=== PATIENT | female | born 1985 | race Caucasian/White ===

== ENCOUNTER 2016-07-08 10:15 | Emergency (ER) | payer BC ==
[~2016-07-08] VITALS: Ht 172.7 cm; Wt 131.5 kg
[2016-07-08 10:18] VITALS: BP 131/83
--- NOTE | 2016-07-08 11:57 | PHYS DOC ---
Past Medical History Past Medical History: Anxiety, DVT Additional Past Medical Histor: morbid obesity Past Surgical History: , Tubal ligation Additional Information: 7-8 cigarettes daily Alcohol Use: Rarely Drug Use: None Adult General Chief Complaint Chief Complaint: ALLERGIC REACTION HPI HPI Patient is a 30 year old female who presents with left upper lip and cheek swelling starting when she woke up this morning. She denies any difficulty breathing, difficulty swallowing, or swelling of the tongue. There is no rash noted. She used a new face washed last night but denies any other changes in household products, and new medications, or new foods. She has not taken any Benadryl today. Her PCP is Dr. Richard Youngblood. Review of Systems Review of Systems Constitutional: Denies fever or chills. [] Eyes: Denies change in visual acuity, redness, or eye pain. [] HENT: Denies ear pain, nasal congestion or sore throat. Denies dysphagia or tongue swelling. Reports left upper lip and cheek swelling. Respiratory: Denies cough or shortness of breath. [] Musculoskeletal: Denies back pain or joint pain. [] Integument: Denies rash or skin lesions. [] Neurologic: Denies headache, focal weakness or sensory changes. [] All systems reviewed and negative unless otherwise stated in the HPI. Allergies Allergies Allergies Coded Allergies Type Severity Reaction Last Updated Verified blueberry Allergy Severe Anaphylaxis 09/06/14 Yes latex Allergy Severe Hives 09/06/14 Yes codeine Adverse Reaction Intermediate "stomach ache" 09/06/14 Yes Physical Exam Physical Exam Constitutional: Well developed, well nourished, no acute distress, non-toxic appearance. [] HENT: Normocephalic, atraumatic, bilateral external ears normal, oropharynx moist, no oral exudates, nose normal. There is moderate edema of the left upper lip and cheek without swelling of the tongue or airway compromise. Eyes: PERRLA, EOMI, conjunctiva normal, no discharge. [] Neck: Normal range of motion, no tenderness, supple, no stridor. [] Cardiovascular: Heart rate regular rhythm, no murmur [] Lungs & Thorax: Bilateral breath sounds clear to auscultation without wheezes, rales, or rhonchi. No respiratory distress. Skin: Warm, dry, no erythema, no rash. [] Neurologic: Alert and oriented X 3, normal motor function, normal sensory function, no focal deficits noted. [] Psychologic: Affect normal, judgement normal, mood normal. [] Current Patient Data Vital Signs Vital Signs Date Time Temp Pulse Resp B/P Pulse Ox O2 Delivery O2 Flow Rate FiO2 07/08/16 10:18 98.0 88 16 131/83 99 Room Air 98.0 EKG EKG [] Radiology/Procedures Radiology/Procedures [] Course & Med Decision Making Course & Med Decision Making Pertinent Labs and Imaging studies reviewed. (See chart for details) Patient presents with left upper lip swelling after sneezing any face wash. She is given Decadron, Benadryl, and Pepcid in the emergency department. She is instructed to discontinue use of the face wash and note the active ingredient to avoid that as well. She may continue Benadryl and Pepcid at home. Return precautions were discussed. She verbalizes understanding and agrees with plan. Dragon Disclaimer Dragon Disclaimer This electronic medical record was generated, in whole or in part, using a voice recognition dictation system. Departure Departure Impression: Primary Impression: Allergic reaction Disposition: HOME, SELF-CARE Condition: STABLE Referrals: RICHARD YOUNGBLOOD MD (PCP) Patient Instructions: Angioedema, [id number] Additional Instructions: You were seen for swelling of your lip after using a new facial wash. Please do not use the facial wash again. Please check the active ingredients on the facial wash and avoid using other products containing the active ingredient. You were given a shot of steroids in the emergency department. You may also take Benadryl and Pepcid at home to help with any itching or swelling. Use according to package instructions. Return immediately to the emergency department if you have increased swelling, swelling of the tongue, or difficulty breathing. Problem Qualifiers Primary Impression: Allergic reaction Encounter type: initial encounter Qualified Code: T78.40XA - Allergy, unspecified, initial encounter GABRIELA RUIZ Jul 08, 2016 11:57
[2016-07-08] MEDS ORDERED: DEXAMETHASONE SOD PHOS 20 MG/5 ML VIAL. IM ONE (12:00)
[2016-07-08] MEDS ORDERED: FAMOTIDINE 20 MG TABLET. PO ONE (12:00)
[2016-07-08] MEDS ORDERED: DIPHENHYDRAMINE HCL 25 MG CAPSULE PO ONE (12:00)
== END 2016-07-08 12:18 | disposition home or self-care (01) ==
LOC: ER 10:15
DX: T78.40XA Allergy, unspecified, initial encounter (principal); E66.01 Morbid (severe) obesity due to excess calories; Z68.41 Body mass index [BMI] 40.0-44.9, adult; F17.210 Nicotine dependence, cigarettes, uncomplicated; Z91.040 Latex allergy status; Z88.5 Allergy status to narcotic agent; Z91.018 Allergy to other foods
CPT/HCPCS: 96372; 99283; J1100; Q0163

== ENCOUNTER 2016-07-22 22:44 | Emergency (ER) | payer BC ==
[~2016-07-22] VITALS: Ht 170.2 cm; Wt 131.5 kg
[2016-07-22 23:05] VITALS: BP 114/70
--- NOTE | 2016-07-22 23:07 | PHYS DOC ---
Past Medical History Past Medical History: Anxiety, DVT Additional Past Medical Histor: morbid obesity Past Surgical History: , Tubal ligation Alcohol Use: Rarely Drug Use: None Adult General Chief Complaint Chief Complaint: ALLERGIC REACTION HPI HPI 30-year-old female presents with a two-hour history of some upper lip swelling facial itching and chest itching. She states she also had a faint rash. She was seen in the emergency department 2 weeks ago for the same and they thought it was related to a face washing been using so she stopped using this. She denies any new medicines soaps lotions detergents etc. She's not had any trouble breathing or swallowing. She does not feels if her tongue is swollen. [] Review of Systems Review of Systems Constitutional: Denies fever or chills [] Eyes: Denies change in visual acuity, redness, or eye pain [] HENT: Denies nasal congestion or sore throat [] Respiratory: Denies cough or shortness of breath [] Cardiovascular: No additional information not addressed in HPI [] GI: Denies abdominal pain, nausea, vomiting, bloody stools or diarrhea [] : Denies dysuria or hematuria [] Musculoskeletal: Denies back pain or joint pain [] Integument: Per history of present illness [] Neurologic: Denies headache, focal weakness or sensory changes [] Endocrine: Denies polyuria or polydipsia [] Current Medications Current Medications Current Medications Medications (Trade) Dose Ordered Sig/Blayne Start Time Stop Time Status Last Admin Dose Admin Diphenhydramine HCl (Benadryl) 25 mg 1X ONCE 07/22/16 23:15 07/22/16 23:16 DC 07/22/16 23:23 25 MG Famotidine 40 mg 40 mg 1X ONCE 07/22/16 23:15 07/22/16 23:16 DC 07/22/16 23:24 40 MG Methylprednisolone Sodium Succinate (Solu-Medrol 125mg Vial) 125 mg 1X ONCE 07/22/16 23:15 07/22/16 23:16 DC 07/22/16 23:23 125 MG Sodium Chloride (Iv Sodium Chloride 0.9% 1000ml Bag) 1,000 ml @ 1,000 mls/hr 1X ONCE 07/22/16 23:15 07/23/16 00:14 DC 07/22/16 23:15 1,000 MLS/HR Allergies Allergies Allergies Coded Allergies Type Severity Reaction Last Updated Verified blueberry Allergy Severe Anaphylaxis 09/06/14 Yes latex Allergy Severe Hives 09/06/14 Yes codeine Adverse Reaction Intermediate "stomach ache" 09/06/14 Yes Physical Exam Physical Exam Constitutional: Well developed, well nourished, no acute distress, non-toxic appearance. [] HENT: Normocephalic, atraumatic, bilateral external ears normal, oropharynx moist, no oral exudates, nose normal. [] Eyes: PERRLA, EOMI, conjunctiva normal, no discharge. [] Neck: Normal range of motion, no tenderness, supple, no stridor. [] Cardiovascular:Heart rate regular rhythm, no murmur [] Lungs & Thorax: Bilateral breath sounds clear to auscultation [] Abdomen: Bowel sounds normal, soft, no tenderness, no masses, no pulsatile masses. [] Skin: Mild swelling to her upper lip tongue uvula posterior pharynx are unremarkable no noticeable rash some periorbital swelling. [] Back: No tenderness, no CVA tenderness. [] Extremities: No tenderness, no cyanosis, no clubbing, ROM intact, no edema. [] Neurologic: Alert and oriented X 3, normal motor function, normal sensory function, no focal deficits noted. [] Psychologic: Affect normal, judgement normal, mood normal. [] Current Patient Data Vital Signs Vital Signs Date Time Temp Pulse Resp B/P Pulse Ox O2 Delivery O2 Flow Rate FiO2 07/22/16 23:05 98.5 91 20 114/70 99 Room Air 98.5 Lab Values Laboratory Tests Test 07/22/16 22:03 POC Urine HCG, Qualitative Hcg negative (Negative) EKG EKG [] Radiology/Procedures Radiology/Procedures [] Course & Med Decision Making Course & Med Decision Making Pertinent Labs and Imaging studies reviewed. (See chart for details) [] Patient feels significantly improved on the ER after treatment. Patient reports swelling in her lip is completely resolved and the itching is resolved as well too. Patient be discharged home with prednisone as well as Benadryl. Patient was instructed to keep a log of everything that she is coming in contact with within the last 24 hours that she can cross-reference that next time she does have an allergic reaction. Patient reports that she had similar symptoms approximately 2 weeks ago and she thought was secondary to a soap however she reports this time she presented with the same symptoms again with no usage of that soap that she thought she was allergic to it. Patient reports that she did not keep a diary at that time. Patient currently is hemodynamically stable for discharged home. Patient's lungs are clear. Patient has no stridor. Patient's oropharynx is clear without any evidence of edema or swelling. Patient's lip does not appear to have any swelling at this time. Patient's skin does not show any evidence of rash. HEENT clinically she does not show any signs or symptoms consistent with anaphylaxis or airway involvement. Dragon Disclaimer Dragon Disclaimer This electronic medical record was generated, in whole or in part, using a voice recognition dictation system. Departure Departure Impression: Primary Impression: Allergic reaction Disposition: 01 HOME, SELF-CARE Condition: IMPROVED Referrals: JACKELIN YOUNGBLOOD MD (PCP) Patient Instructions: Allergy Skin Testing, Hives Scripts Prednisone 50 Mg Tablet1 Tab PO DAILY #5 TAB Prov:BRETT STEPHEN MD 07/23/16 Diphenhydramine Hcl (Benadryl)25 Mg Capsule2 Cap PO Q6HRS PRN ITCHING #14 CAP Ref 2 Prov:BRETT STEPHEN MD 07/23/16 Problem Qualifiers Primary Impression: Allergic reaction Encounter type: subsequent encounter Qualified Code: T78.40XD - Allergy, unspecified, subsequent encounter VELMA SIMMS DO Jul 22, 2016 23:07 BRETT STEPHEN MD Jul 23, 2016 00:57
[2016-07-22] MEDS ORDERED: methylPREDNISolone SOD SUCC PF 125 MG/2 ML VIAL. IV ONE (23:15)
[2016-07-22] MEDS ORDERED: IV NORMAL SALINE 1000ML BAG 1,000 ML IV ONE (23:15)
[2016-07-22] MEDS ORDERED: DIPHENHYDRAMINE 50 MG/ML VIAL. IVP ONE (23:15)
[2016-07-22] MEDS ORDERED: FAMOTIDINE 20 MG/2 ML VIAL IVP ONE (23:15)
[2016-07-23] MEDS ORDERED: DIPH25CA58 PO (00:57)
[2016-07-23] MEDS ORDERED: PRED50TA PO (00:57)
== END 2016-07-23 01:18 | disposition home or self-care (01) ==
LOC: ER 22:44
DX: T78.40XA Allergy, unspecified, initial encounter (principal); F41.9 Anxiety disorder, unspecified; E66.01 Morbid (severe) obesity due to excess calories; Z68.42 Body mass index [BMI] 45.0-49.9, adult; Z86.718 Personal history of other venous thrombosis and embolism
CPT/HCPCS: 84703; 96361; 96374; 96375; 99285; J1200; J2930; J7030; S0028; 81025

== ENCOUNTER 2016-08-12 03:31 | Emergency (ER) | payer BC ==
[~2016-08-12] VITALS: Ht 170.2 cm; Wt 131.5 kg
[~2016-08-12 03:31] MED LIST: DIPH25CA58 PO; PRED50TA PO
[2016-08-12 03:53] VITALS: BP 152/60
[2016-08-12] MEDS ORDERED: PENI500T PO (04:06)
[2016-08-12] MEDS ORDERED: HYDR-971 PO (04:06)
--- NOTE | 2016-08-12 04:07 | PHYS DOC ---
Past Medical History Past Medical History: Anxiety, DVT Additional Past Medical Histor: morbid obesity Past Surgical History: , Tubal ligation Alcohol Use: Rarely Drug Use: None Adult General Chief Complaint Chief Complaint: DENTAL PROBLEM HPI HPI Patient is a 30 year old female who presents with dental pain. Patient reports 2 day history of severe diffuse dental pain with jaw swelling. Denies fevers/chills, vomiting. Hasn't seen a dentist for years. Review of Systems Review of Systems Constitutional: Denies fever or chills HENT: Denies nasal congestion or sore throat Respiratory: Denies cough Cardiovascular: Denies chest pain GI: Denies abdominal pain, nausea, vomiting Integument: Denies rash Neurologic: Denies headache Current Medications Current Medications Current Medications Medications (Trade) Dose Ordered Sig/Blayne Start Time Stop Time Status Last Admin Dose Admin Acetaminophen/ Hydrocodone Bitart (Lortab 5/325) 2 tab 1X ONCE 08/12/16 04:30 08/12/16 04:30 DC 08/12/16 04:14 2 TAB Allergies Allergies Allergies Coded Allergies Type Severity Reaction Last Updated Verified blueberry Allergy Severe Anaphylaxis 09/06/14 Yes latex Allergy Severe Hives 09/06/14 Yes codeine Adverse Reaction Intermediate "stomach ache" 09/06/14 Yes Physical Exam Physical Exam Constitutional: obese, no acute distress, non-toxic appearance. HENT: Normocephalic, atraumatic, bilateral external ears normal, oropharynx moist, nose normal. poor dentition throughout with extensive dental caries, dental fractures, scattered gingival erythema without abscess, no trismus, bilateral jaw swelling - left mandibular & maxillary, right mandibular only. Eyes: conjunctiva normal, no discharge. Cardiovascular: no edema. Lungs & Thorax: no respiratory distress. Abdomen: nondistended. Skin: Warm, dry, Extremities: No deformity Neurologic: Alert and oriented X 3 Current Patient Data Vital Signs Vital Signs Date Time Temp Pulse Resp B/P Pulse Ox O2 Delivery O2 Flow Rate FiO2 08/12/16 03:53 98.8 96 20 99 Room Air 98.8 EKG EKG [] Radiology/Procedures Radiology/Procedures [] Course & Med Decision Making Course & Med Decision Making Pertinent Labs and Imaging studies reviewed. (See chart for details) The patient presents with dental pain with significant jaw swelling. No obvious focal source of infection but numerous infected dental caries. Gave norco here (not driving), recommend ibuprofen TID, gave norco for severe pain & penicillin for infection, apply ice packs for comfort. Provided with dental clinic list, follow up as soon as possible. Come back for difficulty breathing or swallowing, or any otherwise worsening condition. Discharged home in stable condition. [] Dragon Disclaimer Dragon Disclaimer This electronic medical record was generated, in whole or in part, using a voice recognition dictation system. Departure Departure Impression: Primary Impression: Dental infection Disposition: 01 HOME, SELF-CARE Condition: STABLE Referrals: JACKELIN YOUNGBLOOD MD (PCP) Patient Instructions: Dental Pain, [id number] Additional Instructions: You were seen in the emergency department today for dental infection. Please apply ice, take ibuprofen 600 mg (3 tablets) every 8 hours, use norco as needed for severe pain, take antibiotics as prescribed. Follow up as soon as possible with a dentist. Come back for difficulty breathing or swallowing, or any otherwise worsening condition. Scripts Penicillin V Potassium 500 Mg [id number] Mg PO QID 7 Days Ref 0 Prov:JIMMY BECK MD 08/12/16 Hydrocodone/Apap 5-325 ([place] 5-325 Tablet)1 Each Tablet1 Tab PO PRN Q6HRS PRN PAIN #10 TAB Prov:JIMMY BECK MD 08/12/16 JIMMY BECK MD August 12, 2016 04:06
[2016-08-12] MEDS ORDERED: HYDROCODONE/APAP 5/325MG TABLET. PO ONE (04:30)
== END 2016-08-12 04:19 | disposition home or self-care (01) ==
LOC: ER 03:31
DX: K04.7 Periapical abscess without sinus (principal); E66.01 Morbid (severe) obesity due to excess calories; F41.9 Anxiety disorder, unspecified; Z86.718 Personal history of other venous thrombosis and embolism; Z68.42 Body mass index [BMI] 45.0-49.9, adult; Z91.040 Latex allergy status; Z88.5 Allergy status to narcotic agent; Z91.018 Allergy to other foods
CPT/HCPCS: 99283

== ENCOUNTER 2016-10-07 19:31 | Emergency (ER) | payer BC ==
[~2016-10-07] VITALS: Ht 172.7 cm; Wt 131.5 kg
[~2016-10-07 19:31] MED LIST changes: +HYDR-971 PO; +PENI500T PO
--- NOTE | 2016-10-07 21:04 | RAD ---
EXAM: Bilateral lower extremity venous Doppler. HISTORY: Bilateral lower extremity pain/swelling. Prior DVT. COMPARISON: None. FINDINGS: Grayscale and Doppler analysis of the both lower extremity deep venous systems was performed with graded compression and augmentation. The common femoral, greater saphenous, superficial femoral, popliteal and calf veins were assessed. There is no evidence of deep venous thrombosis. IMPRESSION: 1. No evidence of deep venous thrombosis. Electronically signed by: Lebron Montanez MD (10/07/2016 9:01 PM)
[2016-10-07 22:00] VITALS: BP 129/72
[2016-10-07] MEDS ORDERED: IBUP200T77 PO (22:10)
--- NOTE | 2016-10-07 22:10 | PHYS DOC ---
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 Past Surgical History: , Tubal ligation Additional Past Surgical Histo: FACE SX Alcohol Use: None Drug Use: None Adult General Chief Complaint Chief Complaint: LOWER EXT PAIN HPI HPI 31-year-old female presenting to the emergency department with left leg pain. Pain is been present for one week. It is a sharp throbbing pain mostly in the calf. She denies recent trauma to the leg. She does have a history of DVT in the past. She reports that it was related to . She denies being and reports having a tubal ligation. The pain is moderate nonradiating intermittent. No alleviating or exacerbating factors present. Review of systems is negative for chest pain shortness of breath abdominal pain nausea vomiting. She denies any recent injuries or trauma. All other review of systems is negative unless otherwise noted in history of present illness. ED course: 31-year-old female presenting to the emergency department with left leg pain. Vital signs afebrile with normal heart rate. Pertinent physical exam findings showed tenderness along the calf and venous system. Normal range of motion of the ankle and knee. Nontender ankle and knee. No ecchymosis lacerations or abrasions to suggest recent trauma. Ultrasound of the left leg was performed which did not show any evidence of DVT. The patient was then discharged home with ibuprofen for pain control to follow up with her doctor. The patient was then discharged home in stable condition to follow up with their primary care physician over the next 2-3 days. They were to return if their symptoms worsened or if they were concerned for any reason. [id number] discharge instructions and return precautions were given. Patient's questions were answered to their satisfaction. Patient is comfortable plan. Review of Systems Review of Systems SEE ABOVE. Allergies Allergies Allergies Coded Allergies Type Severity Reaction Last Updated Verified blueberry Allergy Severe Anaphylaxis 09/06/14 Yes latex Allergy Severe Hives 09/06/14 Yes codeine Adverse Reaction Intermediate "stomach ache" 09/06/14 Yes Physical Exam Physical Exam Constitutional: Well developed, well nourished, no acute distress, non-toxic appearance. [] HENT: Normocephalic, atraumatic, bilateral external ears normal, oropharynx moist, no oral exudates, nose normal. [] Eyes: PERRLA, EOMI, conjunctiva normal, no discharge. [] Neck: Normal range of motion, no tenderness, supple, no stridor. [] Cardiovascular:Heart rate regular rhythm, no murmur [] Lungs & Thorax: Bilateral breath sounds clear to auscultation [] Abdomen: Bowel sounds normal, soft, no tenderness, no masses, no pulsatile masses. [] Skin: Warm, dry, no erythema, no rash. [] Back: No tenderness, no CVA tenderness. [] Extremities: see above Neurologic: Alert and oriented X 3, normal motor function, normal sensory function, no focal deficits noted. [] Psychologic: Affect normal, judgement normal, mood normal. [] Current Patient Data Vital Signs Vital Signs Date Time Temp Pulse Resp B/P (MAP) Pulse Ox O2 Delivery O2 Flow Rate FiO2 10/07/16 21:03 98.2 86 16 119/67 (84) 97 Room Air 98.2 Lab Values Laboratory Tests Test 10/07/16 20:46 POC Urine HCG, Qualitative Hcg negative (Negative) EKG EKG [] Radiology/Procedures Radiology/Procedures [] Course & Med Decision Making Course & Med Decision Making Pertinent Labs and Imaging studies reviewed. (See chart for details) [] Dragon Disclaimer Dragon Disclaimer This electronic medical record was generated, in whole or in part, using a voice recognition dictation system. Departure Departure Impression: Primary Impression: Left leg pain Disposition: 01 HOME, SELF-CARE Condition: STABLE Referrals: JACKELIN YOUNGBLOOD MD (PCP) Patient Instructions: Leg Cramps Additional Instructions: Thank you for allowing us to participate in your care today. Followup with your primary care physician in 3 days if your symptoms do not improve. Call your Primary Doctor tomorrow and inform them of your visit today. If you do not have a primary care provider you can ask for a list of our primary care providers. Return to the emergency department you have any new or concerning findings. This should be evaluated by the primary care physician and any necessary consulting services for continued management within a few days after discharge. Return to emergency room if you have any new or concerning symptoms including but not limited to fever, chills, nausea, vomiting, intractable pain, any new rashes, chest pain, shortness of air, uncontrolled bleeding, difficulty breathing, and/or vision loss. Scripts Ibuprofen (IBUPROFEN) 200 Mg Tablet 200 MG PO PRN Q6HRS Y for INFLAMMATION, #30 TAB Prov: EITAN BRIGGS MD 10/07/16 EITAN BRIGGS MD Oct 07, 2016 22:10
== END 2016-10-07 22:17 | disposition home or self-care (01) ==
LOC: ER 19:37
DX: M79.605 Pain in left leg (principal); Z86.718 Personal history of other venous thrombosis and embolism; E66.01 Morbid (severe) obesity due to excess calories; Z68.41 Body mass index [BMI] 40.0-44.9, adult; Z98.890 Other specified postprocedural states; Z98.51 Tubal ligation status; Z86.2 Personal history of diseases of the blood and blood-forming organs and certain disorders involving the immune mechanism; Z88.5 Allergy status to narcotic agent; Z88.8 Allergy status to other drugs, medicaments and biological substances; Z91.040 Latex allergy status
CPT/HCPCS: 81025; 93971; 99284-25

== ENCOUNTER 2016-10-09 20:21 | Emergency (ER) | payer BC ==
[~2016-10-09] VITALS: Ht 170.2 cm; Wt 136.1 kg
[~2016-10-09 20:21] MED LIST changes: +IBUP200T77 PO
[2016-10-09] MEDS ORDERED: IV NORMAL SALINE 1000ML BAG 1,000 ML IV SCH (20:57)
[2016-10-09] MEDS ORDERED: EPINEPHrine 1 MG/ML VIAL IM ONE (21:00)
[2016-10-09] MEDS ORDERED: methylPREDNISolone SOD SUCC PF 125 MG/2 ML VIAL. IV ONE (21:00)
[2016-10-09] MEDS ORDERED: FAMOTIDINE 20 MG/2 ML VIAL IVP ONE (21:00)
[2016-10-09] MEDS ORDERED: diphenhydrAMINE 50 MG/ML VIAL IV ONE (21:00)
--- NOTE | 2016-10-09 22:43 | PHYS DOC ---
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 Past Surgical History: , Tubal ligation Additional Past Surgical Histo: FACE SX Alcohol Use: None Drug Use: None Adult General Chief Complaint Chief Complaint: ALLERGIC REACTION HPI HPI Patient is a 31 year old female who presents with allergic reaction. The patient states she took diclofenac & methocarbamol for back pain at about 1600, shortly thereafter had onset of lip swelling & tingling with sensation of difficulty catching her breath. She denies tongue swelling, throat tightness, vomiting, diarrhea, rash, urticaria. She states she had previously taken diclofenac on 1 occasion, has never taken methocarbamol. She also has prescription for norco which she has taken before without problems, & did not take any pills yet. She just saw her PCP Dr. Youngblood this afternoon for lower back pain & received all of these prescriptions. No other new foods, exposures to soaps/lotions/detergents. She denies previous history of similar reaction. She is allergic to blueberries. Review of Systems Review of Systems Constitutional: Denies fever or chills Eyes: Denies change in visual acuity HENT: Denies nasal congestion or sore throat, reports lip swelling. Respiratory: Denies cough or shortness of breath Cardiovascular: Denies chest pain GI: Denies abdominal pain, nausea, vomiting, or diarrhea Musculoskeletal: Denies back pain or joint pain Integument: Denies rash or skin lesions Neurologic: Denies headache Current Medications Current Medications Current Medications Medications (Trade) Dose Ordered Sig/Blayne Start Time Stop Time Status Last Admin Dose Admin Diphenhydramine HCl (Benadryl) 25 mg 1X ONCE 10/09/16 21:00 10/09/16 21:03 DC 10/09/16 21:15 25 MG Epinephrine HCl (Adrenalin) 0.3 mg 1X ONCE 10/09/16 21:00 10/09/16 21:03 DC 10/09/16 21:02 0.3 MG Famotidine (Pepcid) 20 mg 1X ONCE 10/09/16 21:00 10/09/16 21:03 DC 10/09/16 21:15 20 MG Methylprednisolone Sodium Succinate (SOLU-Medrol 125MG VIAL) 125 mg 1X ONCE 10/09/16 21:00 10/09/16 21:03 DC 10/09/16 21:14 125 MG Sodium Chloride 1,000 ml @ 1,000 mls/hr Q1H 10/09/16 20:57 10/09/16 21:56 DC 10/09/16 21:12 1,000 MLS/HR Allergies Allergies Allergies Coded Allergies Type Severity Reaction Last Updated Verified blueberry Allergy Severe Anaphylaxis 09/06/14 Yes latex Allergy Severe Hives 09/06/14 Yes codeine Adverse Reaction Intermediate "stomach ache" 09/06/14 Yes Physical Exam Physical Exam Constitutional: obese, no acute distress, non-toxic appearance. HENT: Normocephalic, atraumatic, bilateral external ears normal, oropharynx moist, nose normal. upper & lower lip swelling, no tongue swelling, airway patent. Eyes: conjunctiva normal, no discharge. Neck: supple, no stridor. Cardiovascular: RRR, no murmurs, no edema. Lungs & Thorax: LCTAB, no wheezing, no respiratory distress. Abdomen: soft, nontender, nondistended. Skin: Warm, dry, no erythema, no rash. no urticaria Back: No tenderness. Extremities: No tenderness, no edema. Neurologic: Alert and oriented X 3 Current Patient Data Vital Signs Vital Signs Date Time Temp Pulse Resp B/P (MAP) Pulse Ox O2 Delivery O2 Flow Rate FiO2 10/09/16 22:50 74 18 97 Room Air 10/09/16 22:45 95/55 (68) 10/09/16 20:40 98.1 98.1 EKG EKG [] Radiology/Procedures Radiology/Procedures [] Course & Med Decision Making Course & Med Decision Making Pertinent Labs and Imaging studies reviewed. (See chart for details) The patient presents with allergic reaction to medication, not clear which of the 2 medications caused symptoms as they were taken together. She has lip swelling, administered epi IM as well as IV fluids, Solu-Medrol, Pepcid, Benadryl. She was observed for over 2 hours. Symptoms improved and did not recur. No progression of airway symptoms. She was calm trouble with discharge home. I recommended that she discontinue both medications for now. Okay to keep taking [place] and ibuprofen. Gave prescription for Flexeril that she can fill as needed if symptoms not controlled with [place] and ibuprofen. Also provided prescription for EpiPen to be used if symptoms recur. Gave prescriptions for prednisone and Pepcid, encouraged continuation of Benadryl every 6 hours for the next 4 days. Follow-up with Dr. Youngblood in primary care clinic in 2-3 days. Return to the emergency department for face/tongue/lip swelling, severe shortness of breath, any otherwise worsening condition. Discharged home in stable and improved condition. Critical care time: 35 minutes [] Dragon Disclaimer Dragon Disclaimer This electronic medical record was generated, in whole or in part, using a voice recognition dictation system. Departure Departure Impression: Primary Impression: Allergic reaction Disposition: 01 HOME, SELF-CARE Condition: IMPROVED Referrals: JACKELIN YOUNGBLOOD MD (PCP) Patient Instructions: Drug Allergy, [id number] Additional Instructions: You were seen in the emergency department today for allergic reaction, likely caused by one of the new medications. Please discontinue use until discussing with your doctor. Take prednisone for the next 4 days, continue Benadryl every 6 hours over the next 4 days, take Pepcid daily. If needing additional medication for back pain and spasm, fill prescription for Flexeril. If you would like to have an EpiPen on hand, you may fill the prescription for that as well as use if you have face/tongue/lip swelling, shortness of breath, and of administering please be seen by Dr. Follow-up with Dr. Youngblood in 2-3 days. Come back for face/tongue/lip swelling, severe shortness of breath, any otherwise worsening condition. Scripts Epinephrine (EPIPEN 2-ANNIE) 0.3 Mg/0.3 Ml Auto.injct 0.3 MG IJ 1X Y for ANAPHYLAXIS, #2 SYR Prov: JIMMY BECK MD 10/09/16 Famotidine (PEPCID) 20 Mg Tablet 20 MG PO HS, #4 TAB Prov: JIMMY BECK MD 10/09/16 Cyclobenzaprine Hcl (CYCLOBENZAPRINE HCL) 5 Mg Tablet 1 TAB PO TID Y for MUSCLE SPASMS, #10 TAB Prov: JIMMY BECK MD 10/09/16 Prednisone (PREDNISONE) 50 Mg Tablet 1 TAB PO DAILY, #4 TAB Prov: JIMMY BECK MD 10/09/16 JIMMY BECK MD Oct 09, 2016 22:43
[2016-10-09 22:45] VITALS: BP 95/55
[2016-10-09] MEDS ORDERED: CYCL5TAB PO (22:50)
[2016-10-09] MEDS ORDERED: FAMO-63 PO (22:50)
[2016-10-09] MEDS ORDERED: EPIPEN 2-P0.3 MG/0.3 IJ (22:50)
[2016-10-09] MEDS ORDERED: PRED50TA PO (22:50)
== END 2016-10-09 23:05 | disposition home or self-care (01) ==
LOC: ER 20:21
DX: T39.395A Adverse effect of other nonsteroidal anti-inflammatory drugs [NSAID], initial encounter (principal); T42.8X5A Adverse effect of antiparkinsonism drugs and other central muscle-tone depressants, initial encounter; R06.09 Other forms of dyspnea; R20.2 Paresthesia of skin; K14.8 Other diseases of tongue; Z98.890 Other specified postprocedural states; Z98.51 Tubal ligation status; Z86.718 Personal history of other venous thrombosis and embolism; F41.9 Anxiety disorder, unspecified; Z86.2 Personal history of diseases of the blood and blood-forming organs and certain disorders involving the immune mechanism; Z91.040 Latex allergy status; Z88.5 Allergy status to narcotic agent; Z91.018 Allergy to other foods; Y92.89 Other specified places as the place of occurrence of the external cause
CPT/HCPCS: 96361; 96372; 96374; 96375; 99291; J0171; J1200; J2930; J7030; S0028

== ENCOUNTER 2016-10-17 13:52 | Emergency (ER) | payer BC ==
[~2016-10-17] VITALS: Ht 170.2 cm; Wt 135.2 kg
[~2016-10-17 13:52] MED LIST changes: +CYCL5TAB PO; +EPIPEN 2-P0.3 MG/0.3 IJ; +FAMO-63 PO
[2016-10-17] MEDS ORDERED: diphenhydrAMINE 50 MG/ML VIAL ONE (14:20)
[2016-10-17] MEDS ORDERED: FAMOTIDINE 20 MG/2 ML VIAL ONE (14:20)
[2016-10-17] MEDS ORDERED: methylPREDNISolone SOD SUCC PF 125 MG/2 ML VIAL. ONE (14:20)
[2016-10-17] MEDS ORDERED: FAMOTIDINE 20 MG/2 ML VIAL IVP ONE (14:45)
[2016-10-17] MEDS ORDERED: diphenhydrAMINE 50 MG/ML VIAL IVP ONE (14:45)
[2016-10-17] MEDS ORDERED: methylPREDNISolone SOD SUCC PF 125 MG/2 ML VIAL. IV ONE (14:45)
--- NOTE | 2016-10-17 16:17 | PHYS DOC ---
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 Past Surgical History: , Tubal ligation Additional Past Surgical Histo: FACE SX Additional Information: 5-6 cigarettes daily Alcohol Use: Rarely Drug Use: None Adult General Chief Complaint Chief Complaint: ALLERGIC REACTION HPI HPI Patient is a 31 year old [f__sex] who presents with [] Review of Systems Review of Systems Constitutional: Denies fever or chills [] Eyes: Denies change in visual acuity, redness, or eye pain [] HENT: Denies nasal congestion or sore throat [] Respiratory: Denies cough or shortness of breath [] Cardiovascular: No additional information not addressed in HPI [] GI: Denies abdominal pain, nausea, vomiting, bloody stools or diarrhea [] : Denies dysuria or hematuria [] Musculoskeletal: Denies back pain or joint pain [] Integument: Denies rash or skin lesions [] Neurologic: Denies headache, focal weakness or sensory changes [] Endocrine: Denies polyuria or polydipsia [] Current Medications Current Medications Current Medications Medications (Trade) Dose Ordered Sig/Blayne Start Time Stop Time Status Last Admin Dose Admin Diphenhydramine HCl (Benadryl) 25 mg 1X ONCE 10/17/16 14:45 10/17/16 14:46 DC 10/17/16 14:35 25 MG Famotidine (Pepcid) 20 mg 1X ONCE 10/17/16 14:45 10/17/16 14:46 DC 10/17/16 14:40 20 MG Methylprednisolone Sodium Succinate (SOLU-Medrol 125MG VIAL) 125 mg 1X ONCE 10/17/16 14:45 10/17/16 14:46 DC 10/17/16 14:37 125 MG Allergies Allergies Allergies Coded Allergies Type Severity Reaction Last Updated Verified blueberry Allergy Severe Anaphylaxis 09/06/14 Yes ketorolac Allergy Severe angioedema, itching, hives 10/17/16 Yes latex Allergy Severe Hives 09/06/14 Yes codeine Adverse Reaction Intermediate "stomach ache" 09/06/14 Yes Physical Exam Physical Exam Constitutional: Well developed, well nourished, no acute distress, non-toxic appearance. [] HENT: Normocephalic, atraumatic, bilateral external ears normal, oropharynx moist, no oral exudates, nose normal. [] Eyes: PERRLA, EOMI, conjunctiva normal, no discharge. [] Neck: Normal range of motion, no tenderness, supple, no stridor. [] Cardiovascular:Heart rate regular rhythm, no murmur [] Lungs & Thorax: Bilateral breath sounds clear to auscultation [] Abdomen: Bowel sounds normal, soft, no tenderness, no masses, no pulsatile masses. [] Skin: Warm, dry, no erythema, no rash. [] Back: No tenderness, no CVA tenderness. [] Extremities: No tenderness, no cyanosis, no clubbing, ROM intact, no edema. [] Neurologic: Alert and oriented X 3, normal motor function, normal sensory function, no focal deficits noted. [] Psychologic: Affect normal, judgement normal, mood normal. [] Current Patient Data Vital Signs Vital Signs Date Time Temp Pulse Resp B/P (MAP) Pulse Ox O2 Delivery O2 Flow Rate FiO2 10/17/16 15:28 75 18 111/58 (75) 98 Room Air 10/17/16 14:02 98.9 98.9 EKG EKG [] Radiology/Procedures Radiology/Procedures [] Course & Med Decision Making Course & Med Decision Making Pertinent Labs and Imaging studies reviewed. (See chart for details) [] Dragon Disclaimer Dragon Disclaimer This electronic medical record was generated, in whole or in part, using a voice recognition dictation system. Departure Departure Impression: Primary Impression: Allergic reaction Disposition: HOME, SELF-CARE Condition: IMPROVED Referrals: JACKELIN YOUNGBLOOD MD (PCP) Patient Instructions: Drug Allergy Additional Instructions: It appears that you have had allergic reaction to Toradol. Be sure to make a note to your allergic to this medicine as after receiving it U developed signs of a systemic allergic reaction. Finished prednisone as prescribed once a day for 5 days starting tomorrow. Use Benadryl and Pepcid as needed for itching and hives. Return immediately for changes in her voice difficulty breathing or wheezing . Follow up with your doctor for repeat reevaluation and to arrange allergy testing after resolution of her symptoms. Scripts Prednisone (PREDNISONE) 50 Mg Tablet 1 TAB PO DAILY, #5 TAB Prov: RINKU JOSE MD 10/17/16 Famotidine (PEPCID) 20 Mg Tablet 20 MG PO BID, #14 TAB Prov: RINKU JOSE MD 10/17/16 RINKU JOSE MD Oct 17, 2016 16:17
[2016-10-17] MEDS ORDERED: FAMO-63 PO (16:23)
[2016-10-17] MEDS ORDERED: PRED50TA PO (16:24)
[2016-10-17 16:30] VITALS: BP 125/75
== END 2016-10-17 16:35 | disposition home or self-care (01) ==
LOC: ER 13:52
DX: T78.40XA Allergy, unspecified, initial encounter (principal); Z86.718 Personal history of other venous thrombosis and embolism; Z98.51 Tubal ligation status; Z98.890 Other specified postprocedural states; F17.210 Nicotine dependence, cigarettes, uncomplicated; Z86.2 Personal history of diseases of the blood and blood-forming organs and certain disorders involving the immune mechanism
CPT/HCPCS: 96374; 96375; 99284; J1200; J2930; S0028

== ENCOUNTER 2019-06-11 21:54 | Emergency (ER) | payer BC ==
[~2019-06-11] VITALS: Ht 170.2 cm; Wt 139.0 kg
[~2019-06-11 21:54] MED LIST changes: +HYDR-3164 PO; -HYDR-971 PO
[2019-06-11 22:07] VITALS: BP 152/75
[2019-06-11] MEDS ORDERED: CEPH-264 PO (22:24)
--- NOTE | 2019-06-11 22:24 | PHYS DOC ---
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 Past Surgical History: , Tubal ligation Additional Past Surgical Histo: FACE SX Smoking Status: Current Every Day Smoker Alcohol Use: Rarely Drug Use: None Adult General Chief Complaint Chief Complaint: WOUND CHECK [facility] Patient is a 33 year old female who presents with draining wound to the left upper leg. The patient states she was lying in bed and then she felt it draining down her leg. Denies any fever. Reports her pain is minimal. Complete ROS were reviewed and found to be within normal limits, except as documented in the [facility] Allergies Allergies Allergies Coded Allergies Type Severity Reaction Last Updated Verified blueberry Allergy Severe Anaphylaxis 09/06/14 Yes ketorolac Allergy Severe angioedema, itching, hives 10/17/16 Yes latex Allergy Severe Hives 09/06/14 Yes codeine Adverse Reaction Intermediate "stomach ache" 09/06/14 Yes Physical Exam Physical Exam Constitutional: Well developed, well nourished, no acute distress, non-toxic appearance. [] HENT: Normocephalic, atraumatic, bilateral external ears normal, oropharynx moist, no oral exudates, nose normal. [] Skin: Patient has quarter sized abscess to the R upper leg with area of erythema around it. Abscess is draining exudates. Neurologic: Alert and oriented X 3, normal motor function, normal sensory function, no focal deficits noted. [] Psychologic: Affect normal, judgement normal, mood normal. [] Current Patient Data Vital Signs Vital Signs Date Time Temp Pulse Resp B/P (MAP) Pulse Ox O2 Delivery O2 Flow Rate FiO2 06/11/19 22:07 98.3 84 16 152/75 (100) 99 Room Air 98.3 EKG EKG [] Radiology/Procedures Radiology/Procedures [] Course & Med Decision Making Course & Med Decision Making Pertinent Labs and Imaging studies reviewed. (See chart for details) The patient has an abscess to her upper leg. Will place on Keflex and have return if it does not improve. Abscess is already draining and at this time does not need I/D. Dragon Disclaimer Dragon Disclaimer This electronic medical record was generated, in whole or in part, using a voice recognition dictation system. Departure Departure Impression: Primary Impression: Cellulitis Disposition: 01 HOME, SELF-CARE Condition: STABLE Referrals: JACKELIN YOUNGBLOOD MD (PCP) Patient Instructions: Cellulitis Additional Instructions: Thank you for visiting [facility]. We appreciate you trusting us with your care. If any additional problems come up don't hesitate to return to visit us. Please follow up with your primary care provider so they can plan additional care if needed and know about the problem that you had. If symptoms worsen come back to the Emergency Department. Any concerning symptoms that start such as chest pain, shortness of air, weakness or numbness on one side of the body, running high fevers or any other concerning symptoms return to the ER. You have been prescribed an antibiotic today to help fight your infection. Please take all of the antibiotic as directed. If after 48 hours the infection is not improving, please return for more care. If the infection worsens, return to ER for additional care. Scripts Cephalexin (KEFLEX) 500 Mg Capsule 1 CAP PO QID for 7 Days, #28 CAP 0 Refills Prov: RINKU OAKLEY APRN 06/11/19 Problem Qualifiers Primary Impression: Cellulitis Site of cellulitis: extremity Site of cellulitis of extremity: upper extremity Laterality: right Qualified Codes: L03.113 - Cellulitis of right upper limb RINKU OAKLEY APRN Jun 11, 2019 22:24
== END 2019-06-11 22:30 | disposition home or self-care (01) ==
LOC: ER 21:54
DX: L03.115 Cellulitis of right lower limb (principal); L53.9 Erythematous condition, unspecified; F41.9 Anxiety disorder, unspecified; Z86.718 Personal history of other venous thrombosis and embolism; E66.01 Morbid (severe) obesity due to excess calories; Z68.42 Body mass index [BMI] 45.0-49.9, adult; F17.200 Nicotine dependence, unspecified, uncomplicated; Z98.51 Tubal ligation status; Z98.890 Other specified postprocedural states; Z91.018 Allergy to other foods; Z91.040 Latex allergy status; Z88.5 Allergy status to narcotic agent; Z88.6 Allergy status to analgesic agent
CPT/HCPCS: 99283

== ENCOUNTER 2019-07-24 20:22 | Emergency (ER) | payer BC ==
[~2019-07-24] VITALS: Ht 172.7 cm; Wt 140.9 kg
[~2019-07-24 20:22] MED LIST changes: +CEPH-264 PO
--- NOTE | 2019-07-24 20:40 | PHYS DOC ---
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 (PRIETO JACKSON APRN) Past Surgical History: , Tubal ligation Additional Past Surgical Histo: FACE SX (PRIETO JACKSON APRN) Smoking Status: Current Every Day Smoker Alcohol Use: Rarely Drug Use: None (PRIETO JACKSON APRN) Attending Signature I have participated in the care of this patient and I have reviewed and agree with all pertinent clinical information above including history, exam, and recommendations. (REE HOWE MD) General Adult EDM: Chief Complaint: OTHER COMPLAINTS HPI: HPI: Patient is a 33 year old female with history of anxiety who presents to the ED today complaining of vomiting and dizziness that began after she had half a piece of chocolate flavored CBD/THC. Patient denies any abdominal pain. Denies any headache. (PRIETO JACKSON APRN) Review of Systems: Review of Systems: Constitutional: Denies fever or chills. [] Eyes: Denies change in visual acuity. [] HENT: Denies nasal congestion or sore throat. [] Respiratory: Denies cough or shortness of breath. [] Cardiovascular: Denies chest pain or edema. [] GI: Denies abdominal pain, nausea, vomiting, bloody stools or diarrhea. [] : Denies dysuria. [] Musculoskeletal: Denies back pain or joint pain. [] Integument: Denies rash. [] Neurologic: Reports dizziness. Denies headache, focal weakness or sensory changes. [] Endocrine: Denies polyuria or polydipsia. [] Lymphatic: Denies swollen glands. [] Psychiatric: Reports ingesting CBD (PRIETO JACKSON APRN) Heart Score: Risk Factors: Risk Factors: DM, Current or recent (<one month) smoker, HTN, HLP, family history of CAD, obesity. Risk Scores: Score 0 - 3: 2.5% MACE over next 6 weeks - Discharge Home Score 4 - 6: 20.3% MACE over next 6 weeks - Admit for Clinical Observation Score 7 - 10: 72.7% MACE over next 6 weeks - Early Invasive Strategies (PRIETO JACKSON APRN) Allergies: Allergies: Allergies Coded Allergies Type Severity Reaction Last Updated Verified blueberry Allergy Severe Anaphylaxis 09/06/14 Yes ketorolac Allergy Severe angioedema, itching, hives 10/17/16 Yes latex Allergy Severe Hives 09/06/14 Yes codeine Adverse Reaction Intermediate "stomach ache" 09/06/14 Yes (PRIETO JACKSON APRN) Physical Exam: PE: Constitutional: Well developed, well nourished, no acute distress, non-toxic appearance. [] HENT: Normocephalic, atraumatic, bilateral external ears normal, oropharynx moist, no oral exudates, nose normal. [] Eyes: PERRLA, EOMI, conjunctiva normal, no discharge. [] Neck: Normal range of motion, no tenderness, supple, no stridor. [] Cardiovascular:Heart rate regular rhythm, no murmur [] Lungs & Thorax: Bilateral breath sounds clear to auscultation [] Abdomen: Bowel sounds normal, soft, no tenderness, no masses, no pulsatile masses. [] Skin: Warm, dry, no erythema, no rash. [] Back: No tenderness, no CVA tenderness. [] Extremities: No tenderness, no cyanosis, no clubbing, ROM intact, no edema. [] Neurologic: Alert and oriented X 3, normal motor function, normal sensory function, no focal deficits noted. Cranial nerves II through XII intact Psychologic: Affect normal, judgement normal, mood normal. [] (PRIETO JACKSON APRN) EKG: EKG: [] (PRIETO JACKSON APRN) Radiology/Procedures: Radiology/Procedures: [] (PRIETO JACKSON APRN) Course & Med Decision Making: Course & Med Decision Making Pertinent Labs and Imaging studies reviewed. (See chart for details) This is a 33-year-old female patient presenting to the ED today to be evaluated for dizziness and vomiting that began after eating half a bar of chocolate flavored CBD/THC. CBC with no acute findings, CMP with potassium of 3.2, given oral potassium replacement. Drug screen noted for marijuana and opiates. Patient was discharged to home, provided resources for follow-up. (PRIETO JACKSON APRN) Dragon Disclaimer: Dragon Disclaimer: This electronic medical record was generated, in whole or in part, using a voice recognition dictation system. (PRIETO JACKSON APRN) Departure Departure Impression: Primary Impression: Marijuana use Additional Impressions: Opiate use Dizziness Disposition: HOME, SELF-CARE Condition: STABLE Referrals: JACKELIN YOUNGBLOOD MD (PCP) follow up with your doctor and [facility] Patient Instructions: Marijuana Abuse and Chemical Dependency Additional Instructions: You were evaluated in the emergency room, you can consider following up with [facility] as needed. Follow-up with your own doctor as well. Push fluids. Come back to the ED at any point symptoms worsen. PRIETO JACKSON APRN Jul 24, 2019 20:40 REE HOWE MD Jul 24, 2019 22:57
[2019-07-24] MEDS ORDERED: IV NORMAL SALINE 1000ML BAG 1,000 ML IV ONE (20:45)
[2019-07-24] MEDS ORDERED: ONDANSETRON PF 4 MG/2 ML VIAL. IVP ONE (20:45)
[2019-07-24 20:49] LABS: BILIRUBIN,URINE NEGATIVE (NEG); CLARITY,URINE CLEAR; COLOR,URINE YELLOW; NITRITE,URINE NEGATIVE (NEG); PROTEIN,URINE NEGATIVE (NEG-TRACE); UROBILINOGEN,URINE 0.2 mg/dL (0.2 mg/dL)
[2019-07-24 20:56] LABS: AMPHETAMINE/METHAMPHETAMINE NEG (NEG); BARBITURATES NEG (NEG); BENZODIAZEPINES NEG (NEG); CANNABINOIDS POS (NEG); COCAINE NEG (NEG); METHADONE NEG (NEG); OPIATES POS (NEG); PHENCYCLIDINE NEG (NEG)
[2019-07-24 20:57] LABS: HYALINE CASTS, URINE OCCASIONAL /HPF; SQUAMOUS EPITHELIAL CELL,UR MANY /LPF
[2019-07-24 20:58] LABS: AMORPHOUS SEDIMENT,UR PRESENT /HPF; BACTERIA,URINE MOD /HPF (0-FEW)
[2019-07-24 21:07] LABS: BASO % 1 % (0-3); EOS # 0.1 x10^3/uL (0.0-0.7); EOS % 1 % (0-3); HEMATOCRIT 40.4 % (36.0-47.0); HEMOGLOBIN 13.6 g/dL (12.0-15.5); LYMPH # 2.6 x10^3/uL (1.0-4.8); LYMPH % 25 % (24-48); MEAN CORPUSCULAR HEMOGLOBIN 28 pg (25-35); MEAN CORPUSCULAR HGB CONC 34 g/dL (31-37); MEAN CORPUSCULAR VOLUME 84 fL (79-100); MONO # 0.7 x10^3/uL (0.0-1.1); MONO % 7 % (0-9); NEUT # 7.1 x10^3/uL (1.8-7.7); NEUT % 67 % (31-73); PLATELET COUNT 285 x10^3/uL (140-400); RED CELL DISTRIBUTION WIDTH 13.6 % (11.5-14.5); WHITE BLOOD COUNT 10.6 x10^3/uL (4.0-11.0)
[2019-07-24 21:27] VITALS: BP 135/69
[2019-07-24 21:29] LABS: CALCIUM 8.9 mg/dL (8.5-10.1); CREATININE 0.7 mg/dL (0.6-1.0); GFR 97.6; POTASSIUM 3.2 mmol/L (3.5-5.1)
[2019-07-24 21:32] LABS: ACETAMIN < 2 mcg/ml (10-30); ETHANOL < 10 mg/dL (0-10); SALIC < 2.8 mg/dL (2.8-20.0)
[2019-07-24 21:35] LABS: ALBUMIN 3.6 g/dL (3.4-5.0); ALBUMIN/GLOBULIN RATIO 0.9 (1.0-1.7); TOTAL BILIRUBIN 0.2 mg/dL (0.2-1.0); TOTAL PROTEIN 7.6 g/dL (6.4-8.2)
[2019-07-24] MEDS ORDERED: POTASSIUM CHLORIDE 20 MEQ TABLET.ER. PO ONE (22:00)
== END 2019-07-24 22:02 | disposition home or self-care (01) ==
LOC: ER 20:22
DX: R42 Dizziness and giddiness (principal); R11.2 Nausea with vomiting, unspecified; F12.90 Cannabis use, unspecified, uncomplicated; F41.9 Anxiety disorder, unspecified; E66.01 Morbid (severe) obesity due to excess calories; F17.200 Nicotine dependence, unspecified, uncomplicated; Z91.018 Allergy to other foods; Z91.040 Latex allergy status; Z88.5 Allergy status to narcotic agent; Z88.6 Allergy status to analgesic agent; Z68.42 Body mass index [BMI] 45.0-49.9, adult; Z86.718 Personal history of other venous thrombosis and embolism; Z98.890 Other specified postprocedural states; Z98.51 Tubal ligation status
CPT/HCPCS: 36415; 80053; 80307; 80329; 81001; 83690; 85025; 96361; 96374; 99283; G0480; J2405; J7030

== ENCOUNTER 2019-08-21 21:21 | Emergency (ER) | payer BC ==
[~2019-08-21] VITALS: Ht 170.2 cm; Wt 138.6 kg
[2019-08-21 21:42] LABS: BASO # 0.1 x10^3/uL (0.0-0.2); BASO % 1 % (0-3); EOS # 0.2 x10^3/uL (0.0-0.7); EOS % 2 % (0-3); HEMATOCRIT 39.3 % (36.0-47.0); HEMOGLOBIN 13.2 g/dL (12.0-15.5); LYMPH # 3.6 x10^3/uL (1.0-4.8); LYMPH % 32 % (24-48); MEAN CORPUSCULAR HEMOGLOBIN 28 pg (25-35); MEAN CORPUSCULAR HGB CONC 34 g/dL (31-37); MEAN CORPUSCULAR VOLUME 84 fL (79-100); MONO # 0.7 x10^3/uL (0.0-1.1); MONO % 6 % (0-9); NEUT # 6.7 x10^3/uL (1.8-7.7); NEUT % 60 % (31-73); PLATELET COUNT 315 x10^3/uL (140-400); RED BLOOD COUNT 4.68 x10^6/uL (3.50-5.40); RED CELL DISTRIBUTION WIDTH 13.5 % (11.5-14.5); WHITE BLOOD COUNT 11.3 x10^3/uL (4.0-11.0)
[2019-08-21 21:50] LABS: CALCIUM 8.6 mg/dL (8.5-10.1); CREATININE 0.7 mg/dL (0.6-1.0); GFR 97.6; POTASSIUM 3.2 mmol/L (3.5-5.1)
[2019-08-21 21:57] LABS: ALBUMIN 3.5 g/dL (3.4-5.0); ALBUMIN/GLOBULIN RATIO 0.9 (1.0-1.7); TOTAL BILIRUBIN 0.2 mg/dL (0.2-1.0); TOTAL PROTEIN 7.4 g/dL (6.4-8.2)
[2019-08-21] MEDS ORDERED: MECLIZINE HCL 12.5 MG TABLET. PO ONE (22:00)
[2019-08-21] MEDS ORDERED: SCOPOLAMINE 1.5MG PATCH. TD ONE (22:00)
[2019-08-21] MEDS ORDERED: IV NORMAL SALINE 1000ML BAG 1,000 ML IV SCH (22:00)
[2019-08-21 22:07] LABS: BILIRUBIN,URINE NEGATIVE (NEG); CLARITY,URINE CLEAR; COLOR,URINE YELLOW; NITRITE,URINE NEGATIVE (NEG); PROTEIN,URINE NEGATIVE (NEG-TRACE); UROBILINOGEN,URINE 0.2 mg/dL (0.2 mg/dL)
[2019-08-21 22:08] LABS: BACTERIA,URINE MANY /HPF (0-FEW); SQUAMOUS EPITHELIAL CELL,UR MOD /LPF
[2019-08-21 22:46] VITALS: BP 130/64
[2019-08-21] MEDS ORDERED: POTASSIUM CHLORIDE 20 MEQ TABLET.ER. PO ONE (23:30)
[2019-08-21] MEDS ORDERED: SCOP1PAT11 TP (23:47)
[2019-08-21] MEDS ORDERED: ONDA4TAB12 PO (23:47)
[2019-08-21] MEDS ORDERED: MECL-75 PO (23:47)
--- NOTE | 2019-08-21 23:48 | PHYS DOC ---
Past Medical History Past Medical History: Anxiety, Other Additional Past Medical Histor: OBESITY Past Surgical History: Tubal ligation Additional Past Surgical Histo: FACE SX Smoking Status: Current Every Day Smoker Additional Information: /2 PPD Alcohol Use: Occasionally Drug Use: None General Adult EDM: Chief Complaint: DIZZY/LIGHT HEADED HPI: HPI: Patient is a 33 year old female who presents via EMS with report of dizziness and nausea that started this evening when patient was laying down in bed. Patient states that symptoms began suddenly about an hour ago. She states that when she laid down everything felt like it started to spin inside of her head. She states that symptoms are not quite as bad when she standing up but quickly returned when she lays down flat. She indicates that she has had some nausea but no vomiting. She denies any headache or lateralizing weakness. She does admit to some tingling in her hands and feet but does admit to history of anxiety and states that she was hyperventilating. [] Review of Systems: Review of Systems: Constitutional: Denies fever or chills. [] Respiratory: Denies cough or shortness of breath. [] Cardiovascular: Denies chest pain or edema. [] GI: Denies abdominal pain, nausea, vomiting, bloody stools or diarrhea. [] Neurologic: Denies headache, focal weakness or sensory changes. [] A full 10 point review of systems has been reviewed and is otherwise negative. Heart Score: Risk Factors: Risk Factors: DM, Current or recent (<one month) smoker, HTN, HLP, family history of CAD, obesity. Risk Scores: Score 0 - 3: 2.5% MACE over next 6 weeks - Discharge Home Score 4 - 6: 20.3% MACE over next 6 weeks - Admit for Clinical Observation Score 7 - 10: 72.7% MACE over next 6 weeks - Early Invasive Strategies Current Medications: Current Medications Medications (Trade) Dose Ordered Sig/Blayne Start Time Stop Time Status Last Admin Dose Admin Meclizine HCl (Antivert) 25 mg 1X ONCE 08/21/19 22:00 08/21/19 22:01 DC 08/21/19 22:02 25 MG Potassium Chloride (Klor-Con) 40 meq 1X ONCE 08/21/19 23:30 08/21/19 23:31 DC 08/21/19 23:23 40 MEQ Scopolamine (Transderm-Scop) 1 patch 1X ONCE 08/21/19 22:00 08/21/19 22:01 DC 08/21/19 22:02 1 PATCH Sodium Chloride 1,000 ml @ 1,000 mls/hr Q1H 08/21/19 22:00 08/21/19 22:59 DC 08/21/19 22:02 1,000 MLS/HR Allergies: Allergies: Allergies Coded Allergies Type Severity Reaction Last Updated Verified blueberry Allergy Severe Anaphylaxis 09/06/14 Yes ketorolac Allergy Severe angioedema, itching, hives 10/17/16 Yes latex Allergy Severe Hives 09/06/14 Yes codeine Adverse Reaction Intermediate "stomach ache" 09/06/14 Yes Physical Exam: PE: Constitutional: Well developed, well nourished, no acute distress, non-toxic appearance. [] HENT: Normocephalic, atraumatic, bilateral external ears normal, oropharynx moist, no oral exudates, nose normal. [] Eyes: PERRLA, EOMI, conjunctiva normal, no discharge. [] Neck: Normal range of motion, no tenderness, supple, no stridor. [] Cardiovascular: Regular rate and rhythm [] Lungs & Thorax: Bilateral breath sounds clear to auscultation [] Abdomen: Bowel sounds normal, soft, no tenderness. [] Skin: Warm, dry, no erythema, no rash. [] Extremities: No tenderness, no cyanosis, no clubbing, ROM intact, no edema. [] Neurologic: Alert and oriented X 3, no focal deficits noted. [] Current Patient Data: Labs: Laboratory Tests Test 08/21/19 21:33 08/21/19 21:55 White Blood Count 11.3 x10^3/uL (4.0-11.0) H Red Blood Count 4.68 x10^6/uL (3.50-5.40) Hemoglobin 13.2 g/dL (12.0-15.5) Hematocrit 39.3 % (36.0-47.0) Mean Corpuscular Volume 84 fL (79-100) Mean Corpuscular Hemoglobin 28 pg (25-35) Mean Corpuscular Hemoglobin Concent 34 g/dL (31-37) Red Cell Distribution Width 13.5 % (11.5-14.5) Platelet Count 315 x10^3/uL (140-400) Neutrophils (%) (Auto) 60 % (31-73) Lymphocytes (%) (Auto) 32 % (24-48) Monocytes (%) (Auto) 6 % (0-9) Eosinophils (%) (Auto) 2 % (0-3) Basophils (%) (Auto) 1 % (0-3) Neutrophils # (Auto) 6.7 x10^3/uL (1.8-7.7) Lymphocytes # (Auto) 3.6 x10^3/uL (1.0-4.8) Monocytes # (Auto) 0.7 x10^3/uL (0.0-1.1) Eosinophils # (Auto) 0.2 x10^3/uL (0.0-0.7) Basophils # (Auto) 0.1 x10^3/uL (0.0-0.2) Sodium Level 139 mmol/L (136-145) Potassium Level 3.2 mmol/L (3.5-5.1) L Chloride Level 102 mmol/L (98-107) Carbon Dioxide Level 26 mmol/L (21-32) Anion Gap 11 (6-14) Blood Urea Nitrogen 15 mg/dL (7-20) Creatinine 0.7 mg/dL (0.6-1.0) Estimated GFR (Cockcroft-Gault) 97.6 BUN/Creatinine Ratio 21 (6-20) H Glucose Level 83 mg/dL (70-99) Calcium Level 8.6 mg/dL (8.5-10.1) Magnesium Level 2.0 mg/dL (1.8-2.4) Total Bilirubin 0.2 mg/dL (0.2-1.0) Aspartate Amino Transferase (AST) 20 U/L (15-37) Alanine Aminotransferase (ALT) 31 U/L (14-59) Alkaline Phosphatase 76 U/L (46-116) Total Protein 7.4 g/dL (6.4-8.2) Albumin 3.5 g/dL (3.4-5.0) Albumin/Globulin Ratio 0.9 (1.0-1.7) L Thyroid Stimulating Hormone (TSH) 3.194 uIU/mL (0.358-3.74) Urine Collection Type Unknown Urine Color Yellow Urine Clarity Clear Urine pH 6.0 (<5.0-8.0) Urine Specific [place] >=1.030 (1.000-1.030) Urine Protein Negative mg/dL (NEG-TRACE) Urine Glucose (UA) Negative mg/dL (NEG) Urine Ketones (Stick) Negative mg/dL (NEG) Urine Blood Moderate (NEG) Urine Nitrite Negative (NEG) Urine Bilirubin Negative (NEG) Urine Urobilinogen Dipstick 0.2 mg/dL (0.2 mg/dL) Urine Leukocyte Esterase Negative (NEG) Urine RBC 11-20 /HPF (0-2) Urine WBC 5-10 /HPF (0-4) Urine Squamous Epithelial Cells Mod /LPF Urine Bacteria Many /HPF (0-FEW) Urine Mucus Mod /LPF Laboratory Tests 08/21/19 21:33 Laboratory Tests 08/21/19 21:33 Vital Signs: Vital Signs Date Time Temp Pulse Resp B/P (MAP) Pulse Ox O2 Delivery O2 Flow Rate FiO2 08/21/19 22:46 85 16 98 08/21/19 21:30 98.3 131/71 (91) Room Air 98.3 EKG: EKG: [] Radiology/Procedures: Radiology/Procedures: [] Course & Med Decision Making: Course & Med Decision Making Pertinent Labs and Imaging studies reviewed. (See chart for details) [] Dragon Disclaimer: Dragon Disclaimer: This electronic medical record was generated, in whole or in part, using a voice recognition dictation system. Departure Departure Impression: Primary Impression: Benign positional vertigo Qualified Codes: H81.10 - Benign paroxysmal vertigo, unspecified ear Disposition: HOME, SELF-CARE Condition: STABLE Referrals: JACKELIN YOUNGBLOOD MD (PCP) Patient Instructions: Benign Positional Vertigo Scripts Scopolamine (TRANSDERM-SCOP) 1 Each Patch.td72 1 PATCH TP Q3DAYS PRN for DIZZINESS, #4 PATCH Prov: CORBIN SMALL Jr. DO 08/21/19 Ondansetron (ONDANSETRON ODT) 4 Mg Tab.rapdis 1 TAB PO PRN Q6-8HRS PRN for NAUSEA, #15 TAB Prov: CORBIN SMALL Jr. DO 08/21/19 Meclizine Hcl (MECLIZINE HCL) 25 Mg Tablet 25 MG PO PRN TID PRN for DIZZINESS, #30 TAB dizziness Prov: CORBIN SMALL Jr. DO 08/21/19 CORBIN SMALL Jr. DO August 21, 2019 23:47
--- NOTE | 2019-08-23 07:04 | EKG ---
[facility] [address] [place] [address] Test Date: 2019-08-21 Test Time: 21:48:05 Pat Name: CHRISTIN STRAUSS Department: Room: Gender: F [employer]r: : 1985 Requested By: CORBIN SMALL Order Number: [id number] Reading MD: Trae Freeman Measurements Intervals [place] Rate: 90 P: 23 NE: 182 QRS: 15 QRSD: 78 T: 20 QT: 344 QTc: 425 Interpretive Statements SINUS RHYTHM NORMAL ECG Electronically Signed On 08-23-2019 7:52:28 CDT by Trae Freeman
== END 2019-08-21 23:58 | disposition home or self-care (01) ==
LOC: ER 21:21
DX: H81.10 Benign paroxysmal vertigo, unspecified ear (principal); F41.9 Anxiety disorder, unspecified; F17.200 Nicotine dependence, unspecified, uncomplicated; E66.9 Obesity, unspecified; Z68.42 Body mass index [BMI] 45.0-49.9, adult; Z91.040 Latex allergy status; Z88.5 Allergy status to narcotic agent; Z88.8 Allergy status to other drugs, medicaments and biological substances; Z91.018 Allergy to other foods
CPT/HCPCS: 36415; 80053; 81001; 83735; 84443; 85025; 87086; 93005; 96360; 99284; J7030; J8597

== ENCOUNTER 2019-08-25 09:30 | Emergency (ER) | payer BC ==
[~2019-08-25] VITALS: Ht 170.2 cm; Wt 140.0 kg
[~2019-08-25 09:30] MED LIST changes: +MECL-75 PO; +ONDA4TAB12 PO; +SCOP1PAT11 TP
[2019-08-25 09:35] VITALS: BP 142/83
[2019-08-25 10:23] LABS: BASO % 0 % (0-3); EOS # 0.1 x10^3/uL (0.0-0.7); EOS % 1 % (0-3); HEMATOCRIT 40.5 % (36.0-47.0); HEMOGLOBIN 13.8 g/dL (12.0-15.5); LYMPH # 1.6 x10^3/uL (1.0-4.8); LYMPH % 17 % (24-48); MEAN CORPUSCULAR HEMOGLOBIN 28 pg (25-35); MEAN CORPUSCULAR HGB CONC 34 g/dL (31-37); MEAN CORPUSCULAR VOLUME 83 fL (79-100); MONO # 0.6 x10^3/uL (0.0-1.1); MONO % 7 % (0-9); NEUT # 6.7 x10^3/uL (1.8-7.7); NEUT % 74 % (31-73); PLATELET COUNT 300 x10^3/uL (140-400); RED BLOOD COUNT 4.86 x10^6/uL (3.50-5.40); RED CELL DISTRIBUTION WIDTH 13.6 % (11.5-14.5); WHITE BLOOD COUNT 9.1 x10^3/uL (4.0-11.0)
[2019-08-25 10:30] LABS: CALCIUM 9.1 mg/dL (8.5-10.1); CREATININE 0.7 mg/dL (0.6-1.0); GFR 97.6; POTASSIUM 3.8 mmol/L (3.5-5.1)
[2019-08-25 10:33] LABS: BILIRUBIN,URINE NEGATIVE (NEG); CLARITY,URINE CLEAR; COLOR,URINE YELLOW; PH,URINE 7.5 (<5.0-8.0); PROTEIN,URINE NEGATIVE (NEG-TRACE)
[2019-08-25 10:34] LABS: BACTERIA,URINE FEW /HPF (0-FEW); NITRITE,URINE NEGATIVE (NEG); SQUAMOUS EPITHELIAL CELL,UR MOD /LPF; UROBILINOGEN,URINE 0.2 mg/dL (0.2 mg/dL)
[2019-08-25 10:37] LABS: ALBUMIN 3.5 g/dL (3.4-5.0); ALBUMIN/GLOBULIN RATIO 0.9 (1.0-1.7); TOTAL BILIRUBIN 0.4 mg/dL (0.2-1.0); TOTAL PROTEIN 7.5 g/dL (6.4-8.2)
--- NOTE | 2019-08-25 10:37 | PHYS DOC ---
Past Medical History Past Medical History: Anxiety, Other Additional Past Medical Histor: OBESITY Past Surgical History: Tubal ligation Additional Past Surgical Histo: FACE SX Smoking Status: Current Every Day Smoker Alcohol Use: Occasionally Drug Use: None General Adult EDM: Chief Complaint: MULTIPLE COMPLAINTS HPI: HPI: 33-year-old female presents with a chief complaint of dizziness nausea and vomiting. Patient states symptoms initially started approximately 2 to 3 weeks ago she was evaluated in this emergency department and diagnosed with hypo-k alemia. Patient states since initial onset symptoms never completely resolved. Patient states dizziness nausea and vomiting have progressively become worse and more frequent. Patient was evaluated in the emergency department on Friday and diagnosed with benign positional vertigo. Patient states she was prescribed Zofran and meclizine and over the counter scopolamine patches. Patient states no improvement with these medications. Patient states dizziness is present while remaining still and worse with head movement and ambulation. Patient has associated nausea and vomiting. Patient states she does have some mild left- sided headache. Patient denies any fever chills visual changes. On exam patient appears in no acute distress. Patient without any focal neurological deficits. Review of Systems: Review of Systems: Review of systems: Constitutional symptoms- No fever, no chills. Eyes- No Discharge, No Visual Loss Respiratory symptoms- No shortness of breath, No wheezing, No Dyspnea on Exertion Cardiovascular Systems; No chest pain, No Palpitations, No syncope Gastrointestinal symptoms: NO abdominal pain, positive nausea positive vomiting Genitourinary symptoms: No dysuria. Musculoskeletal symptoms: No back pain No extremity pain. NEUROLOGICAL Symptoms: Positive headache, no generalized weakness; No focal Weakness positive dizziness Heart Score: Risk Factors: Risk Factors: DM, Current or recent (<one month) smoker, HTN, HLP, family history of CAD, obesity. Risk Scores: Score 0 - 3: 2.5% MACE over next 6 weeks - Discharge Home Score 4 - 6: 20.3% MACE over next 6 weeks - Admit for Clinical Observation Score 7 - 10: 72.7% MACE over next 6 weeks - Early Invasive Strategies Allergies: Allergies: Allergies Coded Allergies Type Severity Reaction Last Updated Verified blueberry Allergy Severe Anaphylaxis 09/06/14 Yes ketorolac Allergy Severe angioedema, itching, hives 10/17/16 Yes latex Allergy Severe Hives 09/06/14 Yes codeine Adverse Reaction Intermediate "stomach ache" 09/06/14 Yes Physical Exam: PE: General: alert, no acute distress. Skin: warm, dry and intact. Head:: Normocephalic, atraumatic. Neck: Trachea midline. Eyes: EOMI, Normal conjunctiva, No drainage CARDIOVASCULAR: Regular rate and rhythm RESPIRATORY: No respiratory distress Back: Full range of motion. MUSCULOSKELETAL: Full range of motion of bilateral upper and lower extremities. GASTROINTESTINAL: Abdomen soft without rebound or guarding. NEUROLOGICAL: Alert and noted to person, place and time. No neurological deficits observed Psychiatric: Cooperative. Normal judgment Current Patient Data: Labs: Laboratory Tests Test 08/25/19 09:44 08/25/19 09:55 POC Urine HCG, Qualitative Hcg negative (Negative) White Blood Count 9.1 x10^3/uL (4.0-11.0) Red Blood Count 4.86 x10^6/uL (3.50-5.40) Hemoglobin 13.8 g/dL (12.0-15.5) Hematocrit 40.5 % (36.0-47.0) Mean Corpuscular Volume 83 fL (79-100) Mean Corpuscular Hemoglobin 28 pg (25-35) Mean Corpuscular Hemoglobin Concent 34 g/dL (31-37) Red Cell Distribution Width 13.6 % (11.5-14.5) Platelet Count 300 x10^3/uL (140-400) Neutrophils (%) (Auto) 74 % (31-73) H Lymphocytes (%) (Auto) 17 % (24-48) L Monocytes (%) (Auto) 7 % (0-9) Eosinophils (%) (Auto) 1 % (0-3) Basophils (%) (Auto) 0 % (0-3) Neutrophils # (Auto) 6.7 x10^3/uL (1.8-7.7) Lymphocytes # (Auto) 1.6 x10^3/uL (1.0-4.8) Monocytes # (Auto) 0.6 x10^3/uL (0.0-1.1) Eosinophils # (Auto) 0.1 x10^3/uL (0.0-0.7) Basophils # (Auto) 0.0 x10^3/uL (0.0-0.2) Laboratory Tests 08/25/19 09:55 Vital Signs: Vital Signs Date Time Temp Pulse Resp B/P (MAP) Pulse Ox O2 Delivery O2 Flow Rate FiO2 08/25/19 09:35 98.3 75 20 142/83 (102) 98 Room Air 98.3 EKG: EKG: [] Radiology/Procedures: Radiology/Procedures: [] Impression: CT HEAD WO CONTRAST History: Dizziness Comparison: None. Technique: Noncontrast CT imaging was performed of the head. Exposure: One or more of the following individualized dose reduction techniques were utilized for this examination: 1. Automated exposure control 2. Adjustment of the mA and/or kV according to patient size 3. Use of iterative reconstruction technique. Findings: No intracranial hemorrhage. No mass effect. No hydrocephalus. Extra-axial spaces are unremarkable. Imaged orbits are unremarkable. Imaged paranasal sinuses and mastoid air cells are clear. No acute calvarial fracture. Impression: 1. No acute intracranial abnormality. Course & Med Decision Making: Course & Med Decision Making Pertinent Labs and Imaging studies reviewed. (See chart for details) [] Patient was evaluated for chief complaint. Work-up consisted of laboratory analysis and radiologic imaging. Results reviewed and discussed with patient. Treatment included 1 mg Versed. Patient states symptoms improved post treatment. Discussed hospitalization versus discharge home. Patient states she would like to be discharged home. Will place patient on Valium. Will prescribe Valium 5 mg 1 to 2 tablets p.o. every 6 hours as needed dizziness. Patient advised to follow-up with her primary care physician. Patient advised to return to the ER if symptoms persist get worse or any new concerning symptoms arise. Dragon Disclaimer: Dragon Disclaimer: This electronic medical record was generated, in whole or in part, using a voice recognition dictation system. Departure Departure Referrals: JACKELIN YOUNGBLOOD MD (PCP) Scripts Diazepam (VALIUM) 5 Mg Tablet 1-2 TAB PO QID, #20 TAB 1-2 tablets PO q 6 hrs PRN dizziness Prov: PRESTON FATIMA I DO 08/25/19 PRESTON FATIMA I DO August 25, 2019 10:37
[2019-08-25] MEDS ORDERED: MIDAZOLAM HCL/PF 5 MG/5 ML VIAL. NS ONE (10:45)
--- NOTE | 2019-08-25 10:47 | RAD ---
CT HEAD WO CONTRAST History: Dizziness Comparison: None. Technique: Noncontrast CT imaging was performed of the head. Exposure: One or more of the following individualized dose reduction techniques were utilized for this examination: 1. Automated exposure control 2. Adjustment of the mA and/or kV according to patient size 3. Use of iterative reconstruction technique. Findings: No intracranial hemorrhage. No mass effect. No hydrocephalus. Extra-axial spaces are unremarkable. Imaged orbits are unremarkable. Imaged paranasal sinuses and mastoid air cells are clear. No acute calvarial fracture. Impression: 1. No acute intracranial abnormality. Electronically signed by: Isaac Clarke DO (08/25/2019 10:44 AM) [id number]
[2019-08-25] MEDS ORDERED: DIAZ5TAB PO (12:07)
== END 2019-08-25 12:54 | disposition home or self-care (01) ==
LOC: ER 09:30
DX: R11.2 Nausea with vomiting, unspecified (principal); R42 Dizziness and giddiness; R51 Headache; F41.9 Anxiety disorder, unspecified; F17.200 Nicotine dependence, unspecified, uncomplicated; E66.9 Obesity, unspecified; Z68.42 Body mass index [BMI] 45.0-49.9, adult; Z98.51 Tubal ligation status; Z98.890 Other specified postprocedural states; Z88.5 Allergy status to narcotic agent; Z91.018 Allergy to other foods; Z88.6 Allergy status to analgesic agent; Z91.040 Latex allergy status
CPT/HCPCS: 36415; 70450; 80053; 81001; 81025; 85025; 99284; J2250

== ENCOUNTER 2019-09-16 22:04 | Emergency (ER) | payer BC ==
[~2019-09-16] VITALS: Ht 167.6 cm; Wt 140.0 kg
[~2019-09-16 22:04] MED LIST changes: +DIAZ5TAB PO
[2019-09-16 22:10] VITALS: BP 142/71
[2019-09-16 22:36] LABS: BASO # 0.1 x10^3/uL (0.0-0.2); BASO % 1 % (0-3); EOS # 0.2 x10^3/uL (0.0-0.7); EOS % 2 % (0-3); HEMATOCRIT 38.5 % (36.0-47.0); HEMOGLOBIN 13.3 g/dL (12.0-15.5); LYMPH # 3.4 x10^3/uL (1.0-4.8); LYMPH % 26 % (24-48); MEAN CORPUSCULAR HEMOGLOBIN 29 pg (25-35); MEAN CORPUSCULAR HGB CONC 35 g/dL (31-37); MEAN CORPUSCULAR VOLUME 84 fL (79-100); MONO # 0.9 x10^3/uL (0.0-1.1); MONO % 6 % (0-9); NEUT # 8.7 x10^3/uL (1.8-7.7); NEUT % 66 % (31-73); PLATELET COUNT 289 x10^3/uL (140-400); RED CELL DISTRIBUTION WIDTH 13.9 % (11.5-14.5); WHITE BLOOD COUNT 13.3 x10^3/uL (4.0-11.0)
[2019-09-16 22:43] LABS: BILIRUBIN,URINE NEGATIVE (NEG); CLARITY,URINE CLOUDY; COLOR,URINE AMBER; NITRITE,URINE NEGATIVE (NEG); PH,URINE 5.5 (<5.0-8.0); PROTEIN,URINE 30 mg/dL (NEG-TRACE); UROBILINOGEN,URINE 0.2 mg/dL (0.2 mg/dL)
[2019-09-16 22:45] LABS: CALCIUM 8.6 mg/dL (8.5-10.1); CREATININE 0.9 mg/dL (0.6-1.0); POTASSIUM 3.5 mmol/L (3.5-5.1)
[2019-09-16 22:48] LABS: RBC,URINE TNTC /HPF (0-2); SQUAMOUS EPITHELIAL CELL,UR MOD /LPF
[2019-09-16 22:50] LABS: BACTERIA,URINE 0 /HPF (0-FEW)
[2019-09-16 22:51] LABS: ALBUMIN 3.4 g/dL (3.4-5.0); ALBUMIN/GLOBULIN RATIO 0.9 (1.0-1.7); TOTAL BILIRUBIN 0.2 mg/dL (0.2-1.0); TOTAL PROTEIN 7.3 g/dL (6.4-8.2)
--- NOTE | 2019-09-16 23:11 | RAD ---
CT Head W/O Contrast: History: Reason: dizziness / Spl. Instructions: / History: Comparison: August 25, 2019 Axial images were obtained without contrast. The tee and white matter appears normal and symmetrical for the patients age. There is no mass effect, extraaxial fluid collections or hydrocephalus. There is no gross bleed. There is no focal loss of tee-white matter distinction to suggest acute ischemia, i.e. stroke. Impression: No acute findings. RS Compliance Statement: One or more of the following individualized dose reduction techniques were utilized for this examination: 1. Automated exposure control 2. Adjustment of the mA and/or kV according to patient size 3. Use of iterative reconstruction technique Electronically signed by: Dani Arteaga III, MD (09/16/2019 11:08 PM) [id number]
--- NOTE | 2019-09-16 23:53 | PHYS DOC ---
Past Medical History Past Medical History: Anxiety, Other Additional Past Medical Histor: OBESITY Past Surgical History: Tubal ligation Additional Past Surgical Histo: FACE SX Smoking Status: Current Every Day Smoker Alcohol Use: Occasionally Drug Use: None General Adult EDM: Chief Complaint: DIZZY/LIGHT HEADED HPI: HPI: Patient is a 33 year old female presenting to the ED with a chief complaint of dizziness. Patient states that this is been going on for at least 2 to 3 weeks. Patient states that she has been to ENT and had a hearing test done. Patient was given a scopolamine patch and meclizine. Patient also is scheduled to follow-up with her PCP soon. Patient states that she wanted to come to the ED as her dizziness was getting worse. Patient is able to ambulate without any difficulty. Review of Systems: Review of Systems: Constitutional: Denies fever or chills. [] Eyes: Denies change in visual acuity. [] HENT: Denies nasal congestion or sore throat. [] Respiratory: Denies cough or shortness of breath. [] Cardiovascular: Denies chest pain or edema. [] GI: Denies abdominal pain, nausea, vomiting, bloody stools or diarrhea. [] : Denies dysuria. [] Neurologic: Complains of dizziness [] Heart Score: Risk Factors: Risk Factors: DM, Current or recent (<one month) smoker, HTN, HLP, family history of CAD, obesity. Risk Scores: Score 0 - 3: 2.5% MACE over next 6 weeks - Discharge Home Score 4 - 6: 20.3% MACE over next 6 weeks - Admit for Clinical Observation Score 7 - 10: 72.7% MACE over next 6 weeks - Early Invasive Strategies Allergies: Allergies: Allergies Coded Allergies Type Severity Reaction Last Updated Verified blueberry Allergy Severe Anaphylaxis 09/06/14 Yes ketorolac Allergy Severe angioedema, itching, hives 10/17/16 Yes latex Allergy Severe Hives 09/06/14 Yes codeine Adverse Reaction Intermediate "stomach ache" 09/06/14 Yes Physical Exam: PE: Constitutional: Well developed, well nourished, no acute distress, non-toxic appearance. [] HENT: Normocephalic, atraumatic Eyes: EOMI Neck: Normal range of motion, Supple Cardiovascular:Heart rate regular rhythm Lungs & Thorax: Bilateral breath sounds clear to auscultation [] Abdomen: Bowel sounds normal, soft, no tenderness Extremities: No tenderness, ROM intact Neurologic: Alert and oriented X 3, no focal neuro deficits on exam Current Patient Data: Labs: Laboratory Tests Test 09/16/19 22:30 09/16/19 22:39 White Blood Count 13.3 x10^3/uL (4.0-11.0) H Red Blood Count 4.60 x10^6/uL (3.50-5.40) Hemoglobin 13.3 g/dL (12.0-15.5) Hematocrit 38.5 % (36.0-47.0) Mean Corpuscular Volume 84 fL (79-100) Mean Corpuscular Hemoglobin 29 pg (25-35) Mean Corpuscular Hemoglobin Concent 35 g/dL (31-37) Red Cell Distribution Width 13.9 % (11.5-14.5) Platelet Count 289 x10^3/uL (140-400) Neutrophils (%) (Auto) 66 % (31-73) Lymphocytes (%) (Auto) 26 % (24-48) Monocytes (%) (Auto) 6 % (0-9) Eosinophils (%) (Auto) 2 % (0-3) Basophils (%) (Auto) 1 % (0-3) Neutrophils # (Auto) 8.7 x10^3/uL (1.8-7.7) H Lymphocytes # (Auto) 3.4 x10^3/uL (1.0-4.8) Monocytes # (Auto) 0.9 x10^3/uL (0.0-1.1) Eosinophils # (Auto) 0.2 x10^3/uL (0.0-0.7) Basophils # (Auto) 0.1 x10^3/uL (0.0-0.2) Urine Collection Type Unknown Urine Color [place] Urine Clarity Cloudy Urine pH 5.5 (<5.0-8.0) Urine Specific [place] 1.015 (1.000-1.030) Urine Protein 30 mg/dL (NEG-TRACE) Urine Glucose (UA) Negative mg/dL (NEG) Urine Ketones (Stick) Negative mg/dL (NEG) Urine Blood Large (NEG) Urine Nitrite Negative (NEG) Urine Bilirubin Negative (NEG) Urine Urobilinogen Dipstick 0.2 mg/dL (0.2 mg/dL) Urine Leukocyte Esterase Moderate (NEG) Urine RBC Tntc /HPF (0-2) Urine WBC 5-10 /HPF (0-4) Urine Squamous Epithelial Cells Mod /LPF Urine Bacteria 0 /HPF (0-FEW) Urine Mucus Slight /LPF Sodium Level 138 mmol/L (136-145) Potassium Level 3.5 mmol/L (3.5-5.1) Chloride Level 102 mmol/L (98-107) Carbon Dioxide Level 26 mmol/L (21-32) Anion Gap 10 (6-14) Blood Urea Nitrogen 14 mg/dL (7-20) Creatinine 0.9 mg/dL (0.6-1.0) Estimated GFR (Cockcroft-Gault) 73.0 BUN/Creatinine Ratio 16 (6-20) Glucose Level 101 mg/dL (70-99) H Calcium Level 8.6 mg/dL (8.5-10.1) Total Bilirubin 0.2 mg/dL (0.2-1.0) Aspartate Amino Transferase (AST) 16 U/L (15-37) Alanine Aminotransferase (ALT) 39 U/L (14-59) Alkaline Phosphatase 61 U/L (46-116) Troponin I Quantitative < 0.017 ng/mL (0.000-0.055) Total Protein 7.3 g/dL (6.4-8.2) Albumin 3.4 g/dL (3.4-5.0) Albumin/Globulin Ratio 0.9 (1.0-1.7) L POC Urine HCG, Qualitative Hcg negative (Negative) Laboratory Tests 09/16/19 22:30 Laboratory Tests 09/16/19 22:30 Vital Signs: Vital Signs Date Time Temp Pulse Resp B/P (MAP) Pulse Ox O2 Delivery O2 Flow Rate FiO2 09/16/19 22:10 98.2 79 16 142/71 (94) 97 Room Air 98.2 EKG: EKG: [EKG interpretation: 22: 38 on 09/16/2019 HR: 74 Sinus rhythm Regular intervals Normal axis Nonspecific ST changes ] Radiology/Procedures: Radiology/Procedures: [] Impression: CT head impression: No acute disease seen Course & Med Decision Making: Course & Med Decision Making Pertinent Labs and Imaging studies reviewed. (See chart for details) Ordered labs, UA, CT head, EKG, troponin Labs are within normal limits. UA does not show UTI. Troponin is negative. CT head shows no acute disease. EKG does not show any acute changes. Patient has seen multiple specialists for this and so this is not an acute condition. I discussed that patient needs to follow-up with her PCP and may need to see a neurologist. Discussed results and plan of care with patient. Patient is instructed to follow up with PCP in one to 2 days. Appropriate discharge instructions given to patient to return to the ED or to seek immediate medical evaluation. Patient is instructed to return to the ED if symptoms worsen or if any concerns. Dragon Disclaimer: Dragon Disclaimer: This electronic medical record was generated, in whole or in part, using a voice recognition dictation system. Departure Departure Impression: Primary Impression: Dizziness Disposition: 01 HOME, SELF-CARE Condition: GOOD Referrals: JACKELIN YOUNGBLOOD MD (PCP) Patient Instructions: Dizziness Additional Instructions: Please return to the ED if symptoms worsen or if any concerns. Please follow-up with PCP in 1 to 2 days. Justicifation of Admission Dx: Justifications for Admission: Justification of Admission Dx: MADONNA Burns DO Sep 16, 2019 23:52
--- NOTE | 2019-09-17 06:34 | EKG ---
[facility] [address] [place] [address] Test Date: 2019-09-16 Test Time: 22:38:16 Pat Name: CHRISTIN STRAUSS Department: Room: Gender: F [employer] Operator: : 1985 Requested By: MADONNA CHILD Order Number: [id number] Reading MD: Alverto Boggs MD Measurements Intervals [place] Rate: 74 P: 32 MA: 186 QRS: 12 QRSD: 74 T: 10 QT: 352 QTc: 391 Interpretive Statements SINUS RHYTHM Electronically Signed On 09-23-2019 11:03:09 CDT by Alverto Boggs MD
== END 2019-09-17 | disposition home or self-care (01) ==
LOC: ER 22:04
DX: R42 Dizziness and giddiness (principal); F41.9 Anxiety disorder, unspecified; F17.200 Nicotine dependence, unspecified, uncomplicated; E66.9 Obesity, unspecified; Z68.42 Body mass index [BMI] 45.0-49.9, adult; Z98.51 Tubal ligation status; Z98.890 Other specified postprocedural states; Z91.018 Allergy to other foods; Z91.040 Latex allergy status; Z88.5 Allergy status to narcotic agent; Z88.6 Allergy status to analgesic agent
CPT/HCPCS: 36415; 70450; 80053; 81001; 81025; 84484; 85025; 87086; 93005; 99285

== ENCOUNTER 2019-09-25 12:24 | Emergency (ER) | payer BC ==
[~2019-09-25] VITALS: Ht 170.2 cm; Wt 141.0 kg
[2019-09-25] MEDS ORDERED: IV NORMAL SALINE 1000ML BAG 1,000 ML IV ONE (14:00)
[2019-09-25] MEDS ORDERED: ONDANSETRON PF 4 MG/2 ML VIAL. IV ONE (14:00)
[2019-09-25] MEDS ORDERED: ASPIRIN 325 MG TABLET PO ONE (14:00)
[2019-09-25 14:01] LABS: CALCIUM 8.9 mg/dL (8.5-10.1); CREATININE 0.8 mg/dL (0.6-1.0); GFR 83.7; POTASSIUM 3.8 mmol/L (3.5-5.1)
[2019-09-25 14:06] LABS: ALBUMIN 3.5 g/dL (3.4-5.0); ALBUMIN/GLOBULIN RATIO 0.9 (1.0-1.7); MAGNESIUM 1.9 mg/dL (1.8-2.4); TOTAL BILIRUBIN 0.3 mg/dL (0.2-1.0); TOTAL PROTEIN 7.5 g/dL (6.4-8.2)
[2019-09-25 14:07] LABS: BASO % 0 % (0-3); EOS # 0.2 x10^3/uL (0.0-0.7); EOS % 2 % (0-3); HEMATOCRIT 39.2 % (36.0-47.0); HEMOGLOBIN 13.6 g/dL (12.0-15.5); LYMPH % 22 % (24-48); MEAN CORPUSCULAR HEMOGLOBIN 29 pg (25-35); MEAN CORPUSCULAR HGB CONC 35 g/dL (31-37); MEAN CORPUSCULAR VOLUME 84 fL (79-100); MONO # 0.6 x10^3/uL (0.0-1.1); MONO % 7 % (0-9); NEUT # 6.3 x10^3/uL (1.8-7.7); NEUT % 69 % (31-73); PLATELET COUNT 293 x10^3/uL (140-400); RED BLOOD COUNT 4.64 x10^6/uL (3.50-5.40); RED CELL DISTRIBUTION WIDTH 13.7 % (11.5-14.5); WHITE BLOOD COUNT 9.1 x10^3/uL (4.0-11.0)
[2019-09-25 14:09] LABS: BILIRUBIN,URINE NEGATIVE (NEG); CLARITY,URINE CLEAR; COLOR,URINE YELLOW; NITRITE,URINE NEGATIVE (NEG); PROTEIN,URINE NEGATIVE (NEG-TRACE); UROBILINOGEN,URINE 0.2 mg/dL (0.2 mg/dL)
--- NOTE | 2019-09-25 14:14 | RAD ---
EXAM: CHEST AP ONLY INDICATION: Reason: chest pain / Spl. Instructions: / History: . TECHNIQUE: Single view COMPARISON: 06/17/2015 chest x-ray FINDINGS: The heart size is normal. The great vessels appear unremarkable. There is no hilar or mediastinal mass. The lungs are clear. There is no pleural effusion or pneumothorax. There are no significant osseous abnormalities. IMPRESSION: No active cardiopulmonary disease. Electronically signed by: Martín Rm MD (09/25/2019 2:11 PM) [id number]
--- NOTE | 2019-09-25 14:23 | PHYS DOC ---
Past Medical History Past Medical History: Anxiety, Other Additional Past Medical Histor: OBESITY Past Surgical History: Tubal ligation Additional Past Surgical Histo: FACE SX Smoking Status: Current Every Day Smoker Alcohol Use: Occasionally Drug Use: None General Adult EDM: Chief Complaint: MULTIPLE COMPLAINTS HPI: HPI: Patient is a 33 year old female who presents to the emergency department with concerns of left sided chest pain that increases with deep breath that began earlier this morning. Patient denies any palpitations, shortness of breath, nausea, vomiting, abdominal pain, or back pain. She reports that she has had problems with dizziness for several months and has been evaluated by ENT for those problems. Patient denies any change in her dizzy symptoms with the onset of the chest pain. She denies any cough, fever, or injury. Patient reports that she does smoke cigarettes less than 1 pack/day. She denies any hemoptysis, or wheezing. Patient states that time she has experienced diaphoresis with the chest pain. She currently rates the pain a 7 out of 10 on the pain scale, she denies any alleviating factors, the pain is worse with a deep breath and palpation of the left side of her chest. Review of Systems: Review of Systems: Constitutional: Denies fever or chills. [] Eyes: Denies change in visual acuity. [] HENT: Denies nasal congestion or sore throat. [] Respiratory: Denies cough or shortness of breath.; See HPI [] Cardiovascular: See HPI GI: Denies abdominal pain, nausea, vomiting, bloody stools or diarrhea. [] : Denies dysuria. [] Musculoskeletal: Denies back pain or joint pain. [] Integument: Denies rash; see HPI. [] Neurologic: Denies headache, focal weakness or sensory changes. [] Endocrine: Denies polyuria or polydipsia. [] Lymphatic: Denies swollen glands. [] Psychiatric: Denies depression or anxiety. [] Heart Score: HEART Score for Chest Pain: HEART Score for Chest Pain Response (Comments) Value History Slighlty/Non-Suspicious 0 ECG Normal 0 Age < 45 0 Risk Factors 1 or 2 Risk Factors 1 Troponin < Normal Limit 0 Total 1 Risk Factors: Risk Factors: DM, Current or recent (<one month) smoker, HTN, HLP, family history of CAD, obesity. Risk Scores: Score 0 - 3: 2.5% MACE over next 6 weeks - Discharge Home Score 4 - 6: 20.3% MACE over next 6 weeks - Admit for Clinical Observation Score 7 - 10: 72.7% MACE over next 6 weeks - Early Invasive Strategies Current Medications: Current Medications Medications (Trade) Dose Ordered Sig/[facility] Start Time Stop Time Status Last Admin Dose Admin Aspirin (Dante Aspirin) 325 mg 1X ONCE 09/25/19 14:00 09/25/19 14:01 DC 09/25/19 14:08 325 MG Ondansetron HCl (Zofran) 4 mg 1X ONCE 09/25/19 14:00 09/25/19 14:02 DC 09/25/19 14:08 4 MG Sodium Chloride 1,000 ml @ 1,000 mls/hr 1X ONCE 09/25/19 14:00 09/25/19 14:59 09/25/19 14:08 1,000 MLS/HR Allergies: Allergies: Allergies Coded Allergies Type Severity Reaction Last Updated Verified blueberry Allergy Severe Anaphylaxis 09/06/14 Yes ketorolac Allergy Severe angioedema, itching, hives 10/17/16 Yes latex Allergy Severe Hives 09/06/14 Yes codeine Adverse Reaction Intermediate "stomach ache" 09/06/14 Yes Physical Exam: PE: Constitutional: Well developed, well nourished, no acute distress, non-toxic appearance, morbidly obese, appears anxious. [] HENT: Normocephalic, atraumatic, bilateral external ears normal, oropharynx moist, no oral exudates, nose normal. [] Eyes: PERRLA, EOMI, conjunctiva normal, no discharge. [] Neck: Normal range of motion, no tenderness, supple, no stridor. [] Cardiovascular:Heart rate regular rhythm, no murmur [] Lungs & Thorax: Bilateral breath sounds clear to auscultation, no retractions, no wheezing, left chest wall tenderness to palpation [] Abdomen: soft, no tenderness Skin: Warm, dry, no erythema, no rash. [] Back: No tenderness, no CVA tenderness. [] Extremities: No cyanosis, ROM intact Neurologic: Alert and oriented X 3, no focal deficits noted. [] Psychologic: Affect normal, judgement normal, mood normal. [] Current Patient Data: Labs: Laboratory Tests Test 09/25/19 13:00 White Blood Count 9.1 x10^3/uL (4.0-11.0) Red Blood Count 4.64 x10^6/uL (3.50-5.40) Hemoglobin 13.6 g/dL (12.0-15.5) Hematocrit 39.2 % (36.0-47.0) Mean Corpuscular Volume 84 fL (79-100) Mean Corpuscular Hemoglobin 29 pg (25-35) Mean Corpuscular Hemoglobin Concent 35 g/dL (31-37) Red Cell Distribution Width 13.7 % (11.5-14.5) Platelet Count 293 x10^3/uL (140-400) Neutrophils (%) (Auto) 69 % (31-73) Lymphocytes (%) (Auto) 22 % (24-48) L Monocytes (%) (Auto) 7 % (0-9) Eosinophils (%) (Auto) 2 % (0-3) Basophils (%) (Auto) 0 % (0-3) Neutrophils # (Auto) 6.3 x10^3/uL (1.8-7.7) Lymphocytes # (Auto) 2.0 x10^3/uL (1.0-4.8) Monocytes # (Auto) 0.6 x10^3/uL (0.0-1.1) Eosinophils # (Auto) 0.2 x10^3/uL (0.0-0.7) Basophils # (Auto) 0.0 x10^3/uL (0.0-0.2) Sodium Level 139 mmol/L (136-145) Potassium Level 3.8 mmol/L (3.5-5.1) Chloride Level 104 mmol/L (98-107) Carbon Dioxide Level 25 mmol/L (21-32) Anion Gap 10 (6-14) Blood Urea Nitrogen 11 mg/dL (7-20) Creatinine 0.8 mg/dL (0.6-1.0) Estimated GFR (Cockcroft-Gault) 83.7 BUN/Creatinine Ratio 14 (6-20) Glucose Level 94 mg/dL (70-99) Calcium Level 8.9 mg/dL (8.5-10.1) Magnesium Level 1.9 mg/dL (1.8-2.4) Total Bilirubin 0.3 mg/dL (0.2-1.0) Aspartate Amino Transferase (AST) 16 U/L (15-37) Alanine Aminotransferase (ALT) 28 U/L (14-59) Alkaline Phosphatase 59 U/L (46-116) Troponin I Quantitative < 0.017 ng/mL (0.000-0.055) Total Protein 7.5 g/dL (6.4-8.2) Albumin 3.5 g/dL (3.4-5.0) Albumin/Globulin Ratio 0.9 (1.0-1.7) L Laboratory Tests 09/25/19 13:00 Laboratory Tests 09/25/19 13:00 Vital Signs: Vital Signs Date Time Temp Pulse Resp B/P (MAP) Pulse Ox O2 Delivery O2 Flow Rate FiO2 09/25/19 14:14 96 16 138/86 (103) 99 Room Air 09/25/19 12:30 98.4 98.4 EKG: EK-sinus rhythm, rate 72, no STEMI, read by Dr. Wilson. [] Radiology/Procedures: Radiology/Procedures: PROCEDURE: CHEST AP ONLY EXAM: CHEST AP ONLY INDICATION: Reason: chest pain / Spl. Instructions: / History: . TECHNIQUE: Single view COMPARISON: 06/17/2015 chest x-ray FINDINGS: The heart size is normal. The great vessels appear unremarkable. There is no hilar or mediastinal mass. The lungs are clear. There is no pleural effusion or pneumothorax. There are no significant osseous abnormalities. IMPRESSION: No active cardiopulmonary disease. [] Course & Med Decision Making: Course & Med Decision Making Pertinent Labs and Imaging studies reviewed. (See chart for details) [] Dragon Disclaimer: Dragon Disclaimer: This electronic medical record was generated, in whole or in part, using a voice recognition dictation system. Departure Departure Impression: Primary Impression: Left-sided chest wall pain Additional Impression: Pain of anterior chest wall with respiration Disposition: HOME, SELF-CARE Condition: STABLE Referrals: JACKELIN YOUNGBLOOD MD (PCP) Patient Instructions: Chest Wall Pain, [id number] Additional Instructions: Fill the prescription and take it as directed, follow-up with your primary care doctor this week. Return to the ER if symptoms worsen. Scripts Methylprednisolone (MEDROL) 4 Mg Tab.ds.pk 1 PKG PO UD for 6 Days, #1 PKG 0 Refills Prov: ISIS PARMAR APRN 09/25/19 Justicifation of Admission Dx: Justifications for Admission: Justification of Admission Dx: N/A ISIS PARMAR FIFTH HAND Sep 25, 2019 14:23
[2019-09-25 14:24] LABS: PROTHROMBIN TIME PATIENT 13.2 SEC (11.7-14.0)
[2019-09-25 14:39] LABS: BACTERIA,URINE MODERATE /HPF (0-FEW); RBC,URINE RARE /HPF (0-2); SQUAMOUS EPITHELIAL CELL,UR MANY /LPF; WBC,URINE RARE /HPF (0-4)
[2019-09-25 14:44] VITALS: BP 129/67
[2019-09-25 15:07] LABS: U PREG PATIENT NEGATIVE (NEG)
[2019-09-25] MEDS ORDERED: METH4TAB2 PO (15:35)
--- NOTE | 2019-09-27 06:18 | EKG ---
[facility] [address] [place] [address] Test Date: 2019-09-25 Test Time: 12:43:05 Pat Name: CHRISTIN STRAUSS Department: Room: Gender: F Community Associate: : 1985 Requested By: ISIS PARMAR Order Number: [id number] Reading MD: Alverto Boggs MD Measurements Intervals [place] Rate: 72 P: MA: QRS: 12 QRSD: 72 T: 14 QT: 374 QTc: 411 Interpretive Statements SR NON-SPECIFIC ST/T CHANGES Electronically Signed On 09-27-2019 13:14:15 CDT by Alverto Boggs MD
== END 2019-09-25 16:05 | disposition home or self-care (01) ==
LOC: ER 12:24
DX: R07.89 Other chest pain (principal); R42 Dizziness and giddiness; F41.9 Anxiety disorder, unspecified; F17.200 Nicotine dependence, unspecified, uncomplicated; E66.9 Obesity, unspecified; Z68.42 Body mass index [BMI] 45.0-49.9, adult; Z98.890 Other specified postprocedural states; Z98.51 Tubal ligation status; Z91.018 Allergy to other foods; Z91.040 Latex allergy status; Z88.6 Allergy status to analgesic agent; Z88.5 Allergy status to narcotic agent
CPT/HCPCS: 36415; 71045; 80053; 81001; 81025; 83735; 84484; 85025; 85379; 85610; 85730; 87086; 96361; 96374; 99285; J2405; J7030; 93005

== ENCOUNTER 2019-12-10 22:43 | Emergency (ER) | payer BC ==
[~2019-12-10] VITALS: Ht 170.2 cm; Wt 136.3 kg
[~2019-12-10 22:43] MED LIST changes: +METH4TAB2 PO
[2019-12-10] MEDS ORDERED: AMOX500C PO (23:25)
--- NOTE | 2019-12-10 23:25 | PHYS DOC ---
Past Medical History Past Medical History: Anxiety, Other Additional Past Medical Histor: OBESITY Past Surgical History: Tubal ligation Additional Past Surgical Histo: FACE SX Smoking Status: Current Every Day Smoker Alcohol Use: Occasionally Drug Use: None General Adult EDM: Chief Complaint: TOOTH ACHE OR PAIN HPI: HPI: The history was obtained from the patient. Patient is a 34-year-old female with PMH syncope, anxiety who presents with a chief complaint of dental pain. Patient states she is had progressive dental pain over the past several days. She denies any trauma or recent dental procedures. States he has multiple dental caries. She states that it is painful to chew on the left side of her mouth. She notes very mild left cheek swelling. She denies any dysphonia. She notes very mild trismus. She denies any neck pain. Denies any objective fevers. Denies any fevers. Denies headache. Denies nausea or vomiting. Denies drainage into her mouth. No other complaints. Review of Systems: Review of Systems: Constitutional: Denies fever or chills. [] Eyes: Denies change in visual acuity. [] HENT: Positive for dental pain Respiratory: Denies cough or shortness of breath. [] Cardiovascular: Denies chest pain or edema. [] GI: Denies abdominal pain, nausea, vomiting, bloody stools or diarrhea. [] : Denies dysuria. [] Musculoskeletal: Denies back pain or joint pain. [] Integument: Denies rash. [] Neurologic: Denies headache, focal weakness or sensory changes. [] Endocrine: Denies polyuria or polydipsia. [] Lymphatic: Denies swollen glands. [] Psychiatric: Denies depression or anxiety. [] Heart Score: Risk Factors: Risk Factors: DM, Current or recent (<one month) smoker, HTN, HLP, family history of CAD, obesity. Risk Scores: Score 0 - 3: 2.5% MACE over next 6 weeks - Discharge Home Score 4 - 6: 20.3% MACE over next 6 weeks - Admit for Clinical Observation Score 7 - 10: 72.7% MACE over next 6 weeks - Early Invasive Strategies Allergies: Allergies: Allergies Coded Allergies Type Severity Reaction Last Updated Verified blueberry Allergy Severe Anaphylaxis 09/06/14 Yes ketorolac Allergy Severe angioedema, itching, hives 10/17/16 Yes latex Allergy Severe Hives 09/06/14 Yes codeine Adverse Reaction Intermediate "stomach ache" 09/06/14 Yes Physical Exam: PE: Constitutional: Well developed, well nourished, no acute distress, non-toxic appearance. [] HENT: Normocephalic, atraumatic, bilateral external ears normal, oropharynx moist, no oral exudates, nose normal. Multiple dental caries and necrotic teeth visualized throughout the mouth. No apical abscesses visualized. No woody sensation in the submental region. Full range of motion of the head neck without difficulty. No trismus or dysphonia appreciated. No tonsillar swelling or exudate or uvular deviation noted. Eyes: PERRLA, EOMI, conjunctiva normal, no discharge. [] Neck: Normal range of motion, no tenderness, supple, no stridor. [] Cardiovascular:Heart rate regular rhythm, no murmur [] Lungs & Thorax: Bilateral breath sounds clear to auscultation [] Abdomen: soft, no tenderness, no masses, no pulsatile masses. [] Skin: Warm, dry, no erythema, no rash. [] Back: No tenderness, no CVA tenderness. [] Extremities: No tenderness, no cyanosis, no clubbing, ROM intact, no edema. [] Neurologic: Alert and oriented X 3, normal motor function, normal sensory function, no focal deficits noted. [] Psychologic: Affect normal, judgement normal, mood normal. [] EKG: EKG: [] Radiology/Procedures: Radiology/Procedures: [] Course & Med Decision Making: Course & Med Decision Making Pertinent Labs and Imaging studies reviewed. (See chart for details) Patient is a well-appearing 34-year-old female who presents with chief complaint of dental pain. Examination shows multiple dental caries and necrotic teeth. No signs of deep space infection or emergent etiology. Patient was given oral [place] and amoxicillin. She was discharged home with a course of amoxicillin. She was given referral to dental clinics. Instructed to follow-up with her primary care physician in the next 2 to 3 days. Return precautions discussed and understood. Stable for discharge home. Syed Disclaimer: Syed Disclaimer: This electronic medical record was generated, in whole or in part, using a voice recognition dictation system. Departure Departure Impression: Primary Impression: Tooth pain Additional Impression: Dental caries Disposition: , SELF-CARE Condition: GOOD Referrals: JACKELIN YOUNGBLOOD MD (PCP) Patient Instructions: Dental Caries Additional Instructions: Please follow-up with your primary care physician in the next 2 to 3 days. Please follow-up with a dentist in the next week. Scripts Amoxicillin (AMOXICILLIN) 500 Mg Capsule 1 CAP PO QID for 7 Days, #28 CAP Prov: DAMARIS BREWER DO 12/10/19 Justicifation of Admission Dx: Justifications for Admission: Justification of Admission Dx: N/A Attending Signature Attending Signature I was personally available for consult in the emergency department. I have reviewed the chart and agree with the documentation as recorded by the ALLEN including the assessment, treatment plan and disposition. DAMARIS BREWER DO Dec 10, 2019 23:25
[2019-12-10 23:38] VITALS: BP 171/98
[2019-12-10] MEDS ORDERED: HYDROcodone/APAP 5/325MG 1 TAB TABLET PO ONE (23:45)
[2019-12-10] MEDS ORDERED: AMOXICILLIN 250 MG CAPSULE. PO ONE (23:45)
== END 2019-12-10 23:27 | disposition home or self-care (01) ==
LOC: ER 22:43
DX: K02.9 Dental caries, unspecified (principal); K08.89 Other specified disorders of teeth and supporting structures; R60.0 Localized edema; F41.9 Anxiety disorder, unspecified; F17.200 Nicotine dependence, unspecified, uncomplicated; E66.9 Obesity, unspecified; Z68.42 Body mass index [BMI] 45.0-49.9, adult; Z98.51 Tubal ligation status; Z98.890 Other specified postprocedural states; Z91.040 Latex allergy status; Z88.5 Allergy status to narcotic agent; Z88.8 Allergy status to other drugs, medicaments and biological substances; Z91.018 Allergy to other foods
CPT/HCPCS: 99283

== ENCOUNTER → 2019-12-17 | Outpatient (CLI) | payer BC ==
[2019-12-10 23:38] VITALS: BP 171/98
[~2019-12-17] MED LIST changes: +AMOX500C PO
--- NOTE | 2019-12-17 15:37 | RAD ---
EXAM: Thyroid Ultrasound INDICATION: Reason: THYROID NODULE / Spl. Instructions: / History: ? TECHNIQUE: Real-time ultrasound of the thyroid was performed with permanent freeze-frame documentation. COMPARISON: None currently available. ? FINDINGS: THYROID: Thyroid gland is normal and homogeneous echogenicity. ? Right Lobe: 5.7 x 2.0 x 1.6 cm. No right thyroid nodule. ? Left Lobe: 5.0 x 1.5 x 1.4 cm. ? Isthmus: 0.4 cm. ? Nodule #1. Maximum size: 1.5 cm; Other 2 dimensions 0.9 x 1.1 cm. Location: Mid left thyroid lobe. This is a solid intracystic nodule (2), isoechoic (1) wider than tall (0) smoothly marginated (0) mass with no comet tail artifact (0). ACR TI-RADS risk category: TR3 (3 points): FNA if 2.5 cm, follow-up if 1.5-2.4 cm in 1, 3, and 5 years. Significant change in size (>= 20% in two dimensions and minimal increase of 2 mm): No. Change in features: No. Change in ACR TI-RADS risk category: No. ? OTHER: No evidence of adjacent cervical adenopathy. ? IMPRESSION: ? Solid, intracystic left thyroid lobe nodule (measuring 1.5 cm inclusion of the cystic component) shows probably benign sonographic features. Recommend follow-up as described above. Correlation with any prior examinations if available would be helpful as well. Electronically signed by: Martín Rm MD (12/17/2019 3:34 PM) [id number]
== END | disposition home or self-care (01) ==
LOC: US 10:42
PROVIDERS: ATTEND Nurse Practitioner Family
DX: E04.1 Nontoxic single thyroid nodule (principal)
CPT/HCPCS: 76536

== ENCOUNTER → 2020-01-06 | Outpatient (CLI) | payer BC ==
[2019-12-10 23:38] VITALS: BP 171/98
--- NOTE | 2020-01-06 14:01 | RAD ---
HIP BILATERAL WITH PELVIS DATE: 01/06/2020 12:00 AM INDICATION: PAIN COMPARISON: None. FINDINGS: Bones: There is no evidence of acute fracture or dislocation. Joints: The joint spaces are normal. Miscellaneous: None. IMPRESSION: No acute osseous abnormality Electronically signed by: Brendon Vera MD (01/06/2020 1:58 PM) [id number]
--- NOTE | 2020-01-06 14:01 | RAD ---
LUMBAR SPINE 2-3V DATE: 01/06/2020 10:36 AM INDICATION: LOWER BACK PAIN / Spl. Instructions: / History: COMPARISON: None. FINDINGS: Five non-rib bearing lumbar-type vertebral bodies are present. Bones/Alignment: No evidence of acute compression fracture. There is no listhesis. Joints: There is no disc space loss. Miscellaneous: None. IMPRESSION: Vertebral body heights, alignment, and disc spaces are preserved Electronically signed by: Brendon Vera MD (01/06/2020 1:59 PM) [id number]
== END | disposition home or self-care (01) ==
LOC: RAD 11:05
PROVIDERS: ATTEND Nurse Practitioner Family
DX: M54.5 Low back pain (principal)
CPT/HCPCS: 72100; 73521

== ENCOUNTER 2021-07-18 08:09 | Emergency (ER) | payer SELFPAY ==
[~2021-07-18] VITALS: Ht 170.2 cm; Wt 177.6 kg
[~2021-07-18 08:09] MED LIST changes: -SCOP1PAT11 TP; +SCOP1PAT12 TP
[2021-07-18 08:12] VITALS: BP 172/108
[2021-07-18] MEDS ORDERED: AMOX250S20 PO (08:27)
--- NOTE | 2021-07-18 08:27 | PHYS DOC ---
Past Medical History Past Medical History: Anxiety, Other Additional Past Medical Histor: OBESITY Past Surgical History: Tubal ligation Additional Past Surgical Histo: FACE SX Smoking Status: Former Smoker Alcohol Use: Occasionally Drug Use: None Adult General HPI HPI Patient is a 35 year old female presenting to emergency department for evaluation of right lower mandibular dental pain that has been going on for at least the past several days but she has had poor dentition for years and she says she cannot see a dentist. She denies fevers chills nausea vomiting difficulty breathing or swallowing. She is in no acute distress with normal vital signs other than hypertension. Review of Systems Review of Systems Constitutional: Denies fever or chills [] HENT: Positive dental pain Respiratory: Denies cough or shortness of breath [] Cardiovascular: No additional information not addressed in HPI [] GI: Denies abdominal pain, nausea, vomiting, bloody stools or diarrhea [] All other systems were reviewed and found to be within normal limits, except as documented in this note. Allergies Allergies Allergies Coded Allergies Type Severity Reaction Last Updated Verified blueberry Allergy Severe Anaphylaxis 09/06/14 Yes ketorolac Allergy Severe angioedema, itching, hives 10/17/16 Yes latex Allergy Severe Hives 09/06/14 Yes codeine Adverse Reaction Intermediate "stomach ache" 09/06/14 Yes Physical Exam Physical Exam Constitutional: Well developed, well nourished, no acute distress, non-toxic appearance. [] HENT: Extremely poor dentition throughout entire mouth with multiple teeth eroded to the pulp including in her right mandibular region with a small amount of swelling noted externally near the canine but there was no periapical abscess noted on internal exam. Eyes: PERRLA, EOMI, conjunctiva normal, no discharge. [] Neck: Normal range of motion, no tenderness, supple, no stridor. [] EKG EKG [] Radiology/Procedures Radiology/Procedures [] Course & Med Decision Making Course & Med Decision Making Patient has a dental infection and she says she does not like swallowing pills so I will prescribe her an antibiotic liquid told her she needs to follow with a dentist soon as possible and come back to emergency department worsening pain swelling difficulty breathing swallowing or other concerns. Patient aware and agreeable with plan and verbalized understanding of the above instructions. Dragon Disclaimer Dragon Disclaimer This electronic medical record was generated, in whole or in part, using a voice recognition dictation system. Departure Departure Impression: Primary Impression: Dental infection Additional Impression: Tooth pain Disposition: HOME / SELF CARE / HOMELESS Condition: IMPROVED Referrals: DUY DIXON APRN (PCP) Patient Instructions: Dental Pain, [id number] Scripts Amoxicillin/Potassium Clav (AUGMENTIN 250-62.5 MG/5 ML) 250 Mg/5 Ml Susp.recon 17.5 ML PO BID for 10 Days, #350 ML 0 Refills Prov: MEGAN RIGGINS DO 07/18/21 Problem Qualifiers MEGAN RIGGINS DO Jul 18, 2021 08:27
== END 2021-07-18 08:34 | disposition home or self-care (01) ==
LOC: ER 08:09
DX: K04.7 Periapical abscess without sinus (principal); Z91.018 Allergy to other foods; Z91.040 Latex allergy status; Z88.5 Allergy status to narcotic agent; Z88.6 Allergy status to analgesic agent
CPT/HCPCS: 99283